=== PATIENT | male | born 1970 | race Caucasian/White ===

== ENCOUNTER 2016-08-18 13:15 | Emergency (ER) | payer BC ==
[~2016-08-18] VITALS: Ht 182.9 cm; Wt 113.4 kg
[~2016-08-18 13:15] MED LIST: ASPI-428 PO; ATOR-26 PO; CHOL100010 PO; CLOP1TAB15 PO; CLR10 PO; COEN1CAP40 PO; FLAX100019 PO; GLC500 PO; LISI-461 PO; METO50TA16 PO; MULTTAB58 PO; NTRGSL/4 UT; OMEG10007 PO; RANITAB33 PO
[2016-08-18 13:18] VITALS: TEMP 36.4; Ht 182.9 cm; Wt 113.4 kg
[2016-08-18] MEDS ORDERED: SODIUM CHLORIDE 0.9% 1000ML 1,000 ML IV STA (13:25)
[2016-08-18 13:30] VITALS: O2SAT 95
--- NOTE | 2016-08-18 13:38 | EMERGENCY ROOM VISIT NOTE ---
History Report prepared by Melissa: Letha Jaramillo Under the Supervision of: Dr. Fidencio Young D.O. First contact with patient: 13:22 Chief Complaint: IRREGULAR HEARTBEAT Stated Complaint: A-FIB Nursing Triage Summary: triage note : pt reports "i have noticed an irregular heart beat since before i went to bed last night and again this morning." pt report hx of heart attack aprox 1.5 years ago with two stent placed. pt denies any chest pain at this time. History of Present Illness The patient is a 46 year old male who presents to the Emergency Room with complaints of constant palpitations beginning last night. The patient states that he was going to bed last night when he began noticing his alcaraz beating irregularly. He reports that he has had this feeling before 5 years ago but he was not overly concerned at the time. He notes that he had a heart attack a year and a half ago. The patient states that his palpitations are worse with exertion and movement. He denies any shortness of breath, nausea, vomiting, and pain. He notes that he is on Plavix, lisinopril, metoprolol, and metformin. The patient reports that he is not taking his cholesterol pill because it causes him joint pain. Source of History: patient Onset: last night Position: other (heart) Quality: other (irregular beat) Timing: constant Modifying Factors (Worsening): exertion Associated Symptoms: No SOB, No nausea, No vomiting Review of Systems See HPI for pertinent positives & negatives. A total of 10 systems reviewed and were otherwise negative. Past Medical & Surgical Medical Problems: (1) Chest pain (2) Hyperglycemia (3) Hypertension (4) STEMI (ST elevation myocardial infarction) Family History FHx: myocardial infarction Social History Smoking Status: Never Smoker Marital Status: Housing Status: lives with family Occupation Status: employed Current/Historical Medications Scheduled Apixaban (Eliquis), 5 MG PO BID Aspirin (Ecotrin Low Strength), 81 MG PO DAILY Atorvastatin (Lipitor), 80 MG PO QPM Cholecalciferol (Vitamin D), 1,000 INTER.UNIT PO DAILY Clopidogrel (Plavix), 75 MG PO DAILY Coenzyme Q10 (Ubidecarenone) (Co Q-10), 400 MG PO DAILY Fish Oil (S[place]ro [place]-3), 1,000 MG PO DAILY Flaxseed (Linseed) (Flaxseed Oil 1000 mg), 1,000 MG PO DAILY Lisinopril (Lisinopril), 5 MG PO DAILY Metformin HCl (Metformin HCl), 500 MG PO QAM Metoprolol Tartrate (Lopressor), 12.5 MG PO BID Metoprolol Tartrate (Lopressor) (Lopressor), 1 TAB PO BID Multiple Vitamin (Multivitamin), 1 TAB PO DAILY Scheduled PRN Loratadine (Claritin), 10 MG PO DAILY PRN for Allergy Symptoms Nitroglycerin (Nitrostat), 0.4 MG UT UD PRN for Chest Pain Ranitidine Hcl (Zantac), 75 MG PO DAILY PRN for Indigestion Allergies Coded Allergies: Sulfa Antibiotics (Verified Allergy, Intermediate, rash, 08/18/16) Sertraline (Verified Allergy, Unknown, UNKNOWN, 08/18/16) Physical Exam Vital Signs Date Time Temp Pulse Resp B/P (MAP) Pulse Ox O2 Delivery O2 Flow Rate FiO2 08/18/16 15:22 86 18 133/92 96 Room Air 08/18/16 14:20 82 20 120/86 96 Room Air 08/18/16 14:19 78 18 125/88 95 Room Air 08/18/16 14:16 94 128/85 08/18/16 14:04 82 20 136/79 96 Room Air 08/18/16 13:47 138 08/18/16 13:30 95 Room Air 08/18/16 13:30 95 Room Air 08/18/16 13:18 36.4 93 18 126/83 96 Room Air Physical Exam GENERAL: Patient is awake, alert, mildly anxious appearing but comfortable EYES: The conjunctivae are clear. The pupils are round and reactive. EARS, NOSE, MOUTH AND THROAT: The nose is without any evidence of any deformity. Mucous membranes are moist tongue is midline NECK: The neck is nontender and supple. RESPIRATORY: Normal respiratory effort is noted there is no evidence of wheezing rhonchi or rales CARDIOVASCULAR: Regular rate and Irregular rhythm noted there no murmurs rubs or gallops normal S1 normal S2 GASTROINTESTINAL: The abdomen is soft. Bowel sounds are present in all quadrants. Abdomen is nontender MUSCULOSKELETAL/EXTREMITIES: There is no evidence of gross deformity full range of motion is noted in the hips and shoulders SKIN: There is no obvious evidence of any rash. There are no petechiae, pallor or cyanosis noted. Trace pedal edema bilaterally NEUROLOGIC: Patient is awake alert and oriented x3 Medical Decision & Procedures ER Provider Diagnostic Interpretation: X-ray results as stated below per interpretation by me and the radiologist. CHEST ONE VIEW PORTABLE FINDINGS: The cardiac and mediastinal contours are normal. There is no evidence of focal pulmonary consolidation. There is no evidence of failure. No pleural effusions are visualized. There is stable left upper lobe lucency, possibly representing focal emphysema.. IMPRESSION: No active disease in the chest. Electronically signed by: Roderick Laar M.D. 08/18/2016 1:41 PM Dictated Date/Time: 08/18/2016 1:40 PM Laboratory Results 08/18/16 13:43 Red Blood Count 6.15, Mean Corpuscular Volume 82.6, Mean Corpuscular Hemoglobin 28.1, Mean Corpuscular Hemoglobin Concent 34.1, Mean Platelet Volume 10.3, Neutrophils (%) (Auto) 62.9, Lymphocytes (%) (Auto) 25.8, Monocytes (%) (Auto) 7.5, Eosinophils (%) (Auto) 3.4, Basophils (%) (Auto) 0.2, Neutrophils # (Auto) 5.33, Lymphocytes # (Auto) 2.19, Monocytes # (Auto) 0.64, Eosinophils # (Auto) 0.29, Basophils # (Auto) 0.02 08/18/16 13:43 Test 08/18/16 13:43 White Blood Count 8.49 K/uL (4.8-10.8) Red Blood Count 6.15 M/uL (4.7-6.1) Hemoglobin 17.3 g/dL (14.0-18.0) Hematocrit 50.8 % (42-52) Mean Corpuscular Volume 82.6 fL (80-100) Mean Corpuscular Hemoglobin 28.1 pg (25-34) Mean Corpuscular Hemoglobin Concent 34.1 g/dl (32-36) Platelet Count 240 K/uL (130-400) Mean Platelet Volume 10.3 fL (7.4-10.4) Neutrophils (%) (Auto) 62.9 % Lymphocytes (%) (Auto) 25.8 % Monocytes (%) (Auto) 7.5 % Eosinophils (%) (Auto) 3.4 % Basophils (%) (Auto) 0.2 % Neutrophils # (Auto) 5.33 K/uL (1.4-6.5) Lymphocytes # (Auto) 2.19 K/uL (1.2-3.4) Monocytes # (Auto) 0.64 K/uL (0.11-0.59) Eosinophils # (Auto) 0.29 K/uL (0-0.5) Basophils # (Auto) 0.02 K/uL (0-0.2) RDW Standard Deviation 39.0 fL (36.4-46.3) RDW Coefficient of Variation 13.0 % (11.5-14.5) Immature Granulocyte % (Auto) 0.2 % Immature Granulocyte # (Auto) 0.02 K/uL (0.00-0.02) Prothrombin Time 10.3 SECONDS (9.0-12.0) Prothromb Time International Ratio 1.0 (0.9-1.1) Activated Partial Thromboplast Time 30.1 SECONDS (21.0-31.0) Partial Thromboplastin Ratio 1.2 Anion Gap 10.0 mmol/L (3-11) Est Creatinine Clear Calc Drug Dose 122.5 ml/min Estimated GFR () 106.7 Estimated GFR (Non- 92.1 BUN/Creatinine Ratio 14.4 (10-20) Calcium Level 8.7 mg/dl (8.5-10.1) Magnesium Level 2.0 mg/dl (1.8-2.4) Total Bilirubin 0.4 mg/dl (0.2-1) Direct Bilirubin 0.1 mg/dl (0-0.2) Aspartate Amino Transf (AST/SGOT) 25 U/L (15-37) Alanine Aminotransferase (ALT/SGPT) 51 U/L (12-78) Alkaline Phosphatase 110 U/L (45-117) Troponin I < 0.015 ng/ml (0-0.045) Total Protein 7.5 gm/dl (6.4-8.2) Albumin 3.6 gm/dl (3.4-5.0) Lipase 144 U/L (73-393) Thyroid Stimulating Hormone (TSH) 1.000 uIu/ml (0.300-4.500) Free Thyroxine 1.04 ng/dl (0.80-1.60) Laboratory results per my review. Medications Administered Medications (Trade) Dose Ordered Sig/Rufina Route Start Time Stop Time Status Last Admin Dose Admin Sodium Chloride 1,000 ml @ 250 mls/hr Q4H STAT IV 08/18/16 13:25 08/18/16 17:24 08/18/16 13:25 250 MLS/HR Metoprolol Tartrate (Lopressor Iv) 15 mg NOW STAT IV 08/18/16 13:59 08/18/16 14:00 DC 08/18/16 14:16 5 MG Sodium Chloride 500 ml @ 999 mls/hr Q31M STAT IV 08/18/16 14:10 08/18/16 14:40 DC 08/18/16 14:17 999 MLS/HR ECG Indication: palpitations Rate (beats per minute): 99 Rhythm: atrial fibrillation Findings: other (no PVC, no ST segment abnormalities) Comparison ECG Date: 10/20/15 Change: A-fib is new compared to old. ED Course 1322: The patient was evaluated in room B11. A complete history and physical examination were performed. 1325: NSS 1,000 ml @ 250 mls/hr IV. 1359: Lopressor IV 15mg IV. 1410: NSS 500 ml @ 999 mls/hr IV. 1511: I spoke to Dr. Newman of Cardiology about the patient's case. He recommends increasing his beta tay and starting him on anticoagulation. 1523: Upon reevaluation, the patient is doing well. I discussed the results and treatment plan with the patient. He verbalized agreement of the treatment plan. The patient was discharged home. Medical Decision Differential diagnosis: Etiologies such as premature contractions, electrolyte abnormality, cardiac dysrhythmia, thyroid dysfunction, pulmonary embolism, infection, gastrointestinal, as well as others were entertained. Medication Reconciliation: I attest that I have personally reviewed the patient' s current medications list. Blood pressure screening: Patient was found to have normal blood pressure on screening and does not require follow-up. The patient is a 46-year-old male who presented to the emergency department for an evaluation of palpitations. The patient was found have rate controlled new- onset atrial fibrillation. He was treated with IV fluids and IV Lopressor in the emergency department. I discussed the patient's laboratory and radiographic studies with him. I also discussed his case with the on-call [facility] certified medical records coder. At this time they've recommended increasing the patient's beta tay. We have also decided to start the patient on an oral anticoagulant and recommended follow-up with cardiology this week for possible further treatment options. I discussed the patient's condition with him. I discussed that I would recommend that he return to the emergency department immediately for any worrisome symptoms. Rest and avoid any strenuous activity until he can be seen by certified medical records coder. I did review the patient's most recent echocardiogram. Consults Time Called: [phone] Consulting Physician: Dr. Newman - Cardiology Returned Call: [phone] Newman of Cardiology about the patient's case. He recommends increasing his beta tay and starting him on anticoagulation. Impression Primary Impression: New onset a-fib Additional Impression: Palpitations Scribe Attestation The scribe's documentation has been prepared under my direction and personally reviewed by me in its entirety. I confirm that the note above accurately reflects all work, treatment, procedures, and medical decision making performed by me. Departure Information Dispostion Home / Self-Care Prescriptions Apixaban (ELIQUIS) 5 Mg Tab 5 MG PO BID, #60 TAB Prov: Fidencio Young, DO 08/18/16 Metoprolol Tartrate (Lopressor) (Lopressor) 25 Mg Tab 1 TAB PO BID for 30 Days, #60 TAB Prov: Fidencio Young, DO 08/18/16 Referrals Sharon Ruiz M.D. (MEDICAL) (PCP) Forms HOME CARE DOCUMENTATION FORM, IMPORTANT VISIT INFORMATION Patient Instructions Atrial Fibrillation Id, My [facility] Additional Instructions Call the certified medical records coder on Saturday morning to schedule a follow-up appointment. Continue the medications as prescribed. We are going to change her metoprolol dose to 25 milligrams twice a day and start you on a blood thinner. Otherwise follow-up with your family doctor for reevaluation as well. Problem Qualifiers
--- NOTE | 2016-08-18 13:42 | DIAGNOSTIC IMAGING REPORT ---
CHEST ONE VIEW PORTABLE CLINICAL HISTORY: Atypical chest pain. Atrial fibrillation. COMPARISON STUDY: No previous studies for comparison. FINDINGS: The cardiac and mediastinal contours are normal. There is no evidence of focal pulmonary consolidation. There is no evidence of failure. No pleural effusions are visualized.[ There is stable left upper lobe lucency, possibly representing focal emphysema.. IMPRESSION: No active disease in the chest. Electronically signed by: Roderick Lara M.D. 08/18/2016 1:41 PM Dictated Date/Time: 08/18/2016 1:40 PM
[2016-08-18] MEDS ORDERED: LPR25 PO (13:53)
[2016-08-18] MEDS ORDERED: LSN5 PO (13:53)
[2016-08-18 13:54] LABS: BASO % 0.2 %; BASO ABS # 0.02 K/uL (0-0.2); COMPLETE YES; EOS % 3.4 %; HEMATOCRIT 50.8 % (42-52); IG% 0.2 %; LYMPH % 25.8 %; LYMPH ABS # 2.19 K/uL (1.2-3.4); MEAN CELL VOLUME 82.6 fL (80-100); MEAN CORPUSCULAR HEMOGLOBIN 28.1 pg (25-34); MEAN CORPUSCULAR HGB CONC 34.1 g/dl (32-36); MEAN PLATELET VOLUME 10.3 fL (7.4-10.4); MONO % 7.5 %; NEUT % 62.9 %; PLATELET COUNT 240 K/uL (130-400); RED BLOOD COUNT 6.15 M/uL (4.7-6.1); WHITE BLOOD COUNT 8.49 K/uL (4.8-10.8)
[2016-08-18] MEDS ORDERED: METOPROLOL TARTRATE 1 MG/ML VIAL IV STA (13:59)
[2016-08-18 14:02] LABS: PARTIAL THROMBOPLASTIN RATIO 1.2; PROTHROMBIN TIME (PATIENT) 10.3 SECONDS (9.0-12.0)
[2016-08-18 14:09] LABS: ALT/SGPT 51 U/L (12-78); BLOOD UREA NITROGEN 14 mg/dl (7-18); BUN/CREATININE RATIO 14.4 (10-20); CALCIUM 8.7 mg/dl (8.5-10.1); CARBON DIOXIDE 20 mmol/L (21-32); CHLORIDE 108 mmol/L (98-107); CREATININE 0.98 mg/dl (0.60-1.40); GLUCOSE 186 mg/dl (70-99); POTASSIUM 4.2 mmol/L (3.5-5.1); SODIUM 138 mmol/L (136-145)
[2016-08-18] MEDS ORDERED: SODIUM CHLORIDE 0.9% 500ML 500 ML IV STA (14:10)
[2016-08-18 14:17] LABS: ALKALINE PHOSPHATASE 110 U/L (45-117); AST/SGOT 25 U/L (15-37)
[2016-08-18] MEDS ORDERED: METO25TA56 PO (15:16)
[2016-08-18] MEDS ORDERED: APIX1TAB3 PO (15:16)
[2016-08-18 15:22] VITALS: BP 133/92; PULSE 86; O2SAT 96
== END 2016-08-18 15:31 | disposition home or self-care (01) ==
LOC: C.EDB 13:16
DX: I48.91 Unspecified atrial fibrillation (principal); R00.2 Palpitations; E78.5 Hyperlipidemia, unspecified; I10 Essential (primary) hypertension; Z79.01 Long term (current) use of anticoagulants; Z79.02 Long term (current) use of antithrombotics/antiplatelets; Z79.82 Long term (current) use of aspirin; Z79.84 Long term (current) use of oral hypoglycemic drugs; Z79.899 Other long term (current) drug therapy; I25.2 Old myocardial infarction; Z82.49 Family history of ischemic heart disease and other diseases of the circulatory system

== ENCOUNTER → 2016-09-04 | Outpatient (CLI) | payer BC ==
[~2016-09-04] MED LIST changes: +APIX1TAB3 PO; -LISI-461 PO; +LPR25 PO; +LSN5 PO; +METO25TA56 PO; -METO50TA16 PO
[2016-09-04 17:37] LABS: INR 1.6 (0.9-1.1); PROTHROMBIN TIME (PATIENT) 17.4 SECONDS (9.0-12.0)
== END | disposition home or self-care (01) ==
LOC: C.LAB1850 16:28
PROVIDERS: ATTEND Internal Medicine Cardiovascular Disease
DX: I48.91 Unspecified atrial fibrillation (principal)

== ENCOUNTER 2019-03-27 04:57 | Inpatient (IN) ==
[2019-03-27] MEDS ORDERED: LORazepam 1 MG/2 ML VIAL IV STA (05:10)
--- NOTE | 2019-03-27 05:16 | Emergency Department Note ---
History of Present Illness General Chief complaint: Cardiac Assessment Stated complaint: HEART BEATING FUNNY/FLUTTER, BURNING History of Present Illness Maximum Pain Intensity: 5 This 48-year-old presents to the ER complaining of chest pain, heart fluttering tonight Location: Chest Quality: Uncomfortable Severity: Moderate Duration: Tonight Timing: Tonight Context: Patient was concerned given Modifying factors: better with nothing; worse with nothing patient was admitted last week for chest pain with no acute findings noted. He has had stents placed in the past. He follows with Dr. Maier. He does not smoke. Patient denies exertional chest pain, dyspnea, abdominal pain, flulike illness. He has a history of A. fib and is on Eliquis. He has not missed any doses. He is tried some Tums for his symptoms with no improvement of symptoms. Home Medications Home Medications Medication Instructions Recorded Confirmed Type apixaban 5 mg tablet 5 mg PO BID #60 tab 10/14/18 03/27/19 Rx acetaminophen [Tylenol Extra 1,000 mg PO Q6H PRN 03/19/19 03/27/19 History Strength] atorvastatin 80 mg PO QPM 03/19/19 03/27/19 History clopidogrel 75 mg PO QAM 03/19/19 03/27/19 History famotidine 20 mg PO DAILY PRN 03/19/19 03/27/19 History lisinopril 5 mg PO QAM 03/19/19 03/27/19 History loratadine 10 mg PO QPM PRN 03/19/19 03/27/19 History metformin 500 mg PO BIDM 03/19/19 03/27/19 History metoprolol tartrate 25 mg PO BID 03/19/19 03/27/19 History nitroglycerin 0.4 mg SL DIRECTED PRN 03/19/19 03/27/19 History cyclobenzaprine 10 mg PO TID PRN #90 tab 03/20/19 03/27/19 Rx omeprazole 20 mg PO DAILY 03/27/19 03/27/19 History Allergies Allergy/AdvReac Type Severity Reaction Status Date / Time Sulfa (Sulfonamide Allergy Intermediate Rash Verified 03/27/19 05:22 Antibiotics) sertraline Allergy Unknown Confusion Verified 03/27/19 05:22 Past Med/Surg History Medical History (Updated 03/27/19 @ 09:38 by Geeta Ellis PA-C) CAD (coronary artery disease) GERD (gastroesophageal reflux disease) Hypertension PAF (paroxysmal atrial fibrillation) Pre-diabetes STEMI (ST elevation myocardial infarction) Surgical History History of cardiac catheterization Family History Other Hypertension Stroke Social History Preferred Language: Gambian Communication Ability: Effective Plasterer Tender Required: No Beliefs That Will Affect Care: None Current Living Situation: Spouse Other Information That Helps Us Care for You: No Feels Safe at Home: Yes Safety Concerns: Feels Safe At This Time Smoking Status: Never smoker Hx Alcohol Use: No Hx Substance Use: No Review of Systems A total of 10 systems reviewed and were otherwise negative Physical Exam Vital Signs Vital Signs - 24 hr 03/27/19 04:57 03/27/19 05:04 03/27/19 05:13 Temperature 36.8 C Temperature Source Oral Pulse Rate 93 H 106 H Pulse Rate [Apical] 117 H Pulse Rate from SpO2 Sensor 99 H Pulse Rhythm [Apical] Regular Pulse Strength [Apical] Normal Respiratory Rate 20 18 26 H Respiratory Effort / Characteristics Non-Labored Respiratory Depth Normal Blood Pressure 158/91 H Blood Pressure [Left Arm] 147/88 H Blood Pressure Mean 113 Blood Pressure Mean [Left Arm] 107 Blood Pressure Position Sitting Blood Pressure Position [Left Arm] Pulse Oximetry 97 97 97 Oxygen Delivery Method Room Air Room Air Sepsis Recent Fever Within 48 Hours No Sepsis New/Unexplained Change in Mental Status No Sepsis Action Taken by Nursing No Action Required 03/27/19 05:18 03/27/19 05:20 03/27/19 05:30 Temperature Temperature Source Pulse Rate 96 H Pulse Rate [Apical] Pulse Rate from SpO2 Sensor 89 Pulse Rhythm [Apical] Pulse Strength [Apical] Respiratory Rate 36 H Respiratory Effort / Characteristics Respiratory Depth Blood Pressure Blood Pressure [Left Arm] Blood Pressure Mean Blood Pressure Mean [Left Arm] Blood Pressure Position Blood Pressure Position [Left Arm] Pulse Oximetry 97 97 Oxygen Delivery Method Room Air Room Air Sepsis Recent Fever Within 48 Hours Sepsis New/Unexplained Change in Mental Status Sepsis Action Taken by Nursing 03/27/19 05:40 03/27/19 06:00 03/27/19 06:19 Temperature Temperature Source Pulse Rate 109 H 106 H 101 H Pulse Rate [Apical] 103 H Pulse Rate from SpO2 Sensor 91 H 96 H 104 H Pulse Rhythm [Apical] Irregular Pulse Strength [Apical] Normal Respiratory Rate 22 23 24 Respiratory Effort / Characteristics Non-Labored Spontaneous Respiratory Depth Normal Blood Pressure 147/88 H 112/74 Blood Pressure [Left Arm] 112/74 Blood Pressure Mean 115 83 Blood Pressure Mean [Left Arm] 86 Blood Pressure Position Blood Pressure Position [Left Arm] Sitting Pulse Oximetry 96 95 96 Oxygen Delivery Method Room Air Sepsis Recent Fever Within 48 Hours Sepsis New/Unexplained Change in Mental Status Sepsis Action Taken by Nursing 03/27/19 06:30 03/27/19 06:59 03/27/19 07:00 Temperature Temperature Source Pulse Rate 83 103 H 96 H Pulse Rate [Apical] 108 H Pulse Rate from SpO2 Sensor 85 84 90 Pulse Rhythm [Apical] Irregular Pulse Strength [Apical] Normal Respiratory Rate 28 H 34 H 28 H Respiratory Effort / Characteristics Non-Labored Spontaneous Respiratory Depth Normal Blood Pressure 123/89 124/83 Blood Pressure [Left Arm] 124/83 Blood Pressure Mean 93 111 Blood Pressure Mean [Left Arm] 96 Blood Pressure Position Blood Pressure Position [Left Arm] Sitting Pulse Oximetry 96 97 97 Oxygen Delivery Method Room Air Sepsis Recent Fever Within 48 Hours Sepsis New/Unexplained Change in Mental Status Sepsis Action Taken by Nursing 03/27/19 07:02 03/27/19 07:30 03/27/19 07:31 Temperature Temperature Source Pulse Rate 109 H 106 H 102 H Pulse Rate [Apical] Pulse Rate from SpO2 Sensor 120 H 82 84 Pulse Rhythm [Apical] Pulse Strength [Apical] Respiratory Rate 22 23 19 Respiratory Effort / Characteristics Respiratory Depth Blood Pressure 152/111 H Blood Pressure [Left Arm] Blood Pressure Mean 116 Blood Pressure Mean [Left Arm] Blood Pressure Position Blood Pressure Position [Left Arm] Pulse Oximetry 97 95 96 Oxygen Delivery Method Sepsis Recent Fever Within 48 Hours Sepsis New/Unexplained Change in Mental Status Sepsis Action Taken by Nursing 03/27/19 07:43 03/27/19 08:00 03/27/19 08:30 Temperature Temperature Source Pulse Rate 93 H 112 H 92 H Pulse Rate [Apical] Pulse Rate from SpO2 Sensor 83 86 92 H Pulse Rhythm [Apical] Pulse Strength [Apical] Respiratory Rate 26 H 29 H 26 H Respiratory Effort / Characteristics Respiratory Depth Blood Pressure 130/88 136/80 Blood Pressure [Left Arm] Blood Pressure Mean 114 88 Blood Pressure Mean [Left Arm] Blood Pressure Position Blood Pressure Position [Left Arm] Pulse Oximetry 97 98 97 Oxygen Delivery Method Sepsis Recent Fever Within 48 Hours Sepsis New/Unexplained Change in Mental Status Sepsis Action Taken by Nursing 03/27/19 09:00 Temperature Temperature Source Pulse Rate 101 H Pulse Rate [Apical] Pulse Rate from SpO2 Sensor 92 H Pulse Rhythm [Apical] Pulse Strength [Apical] Respiratory Rate 25 H Respiratory Effort / Characteristics Respiratory Depth Blood Pressure 147/84 H Blood Pressure [Left Arm] Blood Pressure Mean 89 Blood Pressure Mean [Left Arm] Blood Pressure Position Blood Pressure Position [Left Arm] Pulse Oximetry 97 Oxygen Delivery Method Sepsis Recent Fever Within 48 Hours Sepsis New/Unexplained Change in Mental Status Sepsis Action Taken by Nursing VITALS: Vitals are noted on the nurse's note and reviewed by myself. Vital signs stable. GENERAL: Anxious appearing male, in no acute distress, nondiaphoretic, well- developed well-nourished. SKIN: Capillary reflex less than 2 seconds. HEENT: Normocephalic. PERRLA. EOMI. Nares patent. Mucous membranes moist. Neck is supple without nuchal rigidity. HEART: Irregularly irregular tachycardic, chest nontender to palpation LUNGS: Clear to auscultation bilaterally without wheezes, rales or rhonchi. No retractions or accessory muscle use. ABDOMEN: Positive bowel sounds x 4. Normal tympanic percussion. Soft, nontender, without masses or organomegaly. Riggins sign negative. No guarding or rebound tenderness. MUSCULOSKELETAL: No gross musculoskeletal defects. NEURO: Patient was alert and oriented to person place and time. No focal neurological deficits. Course Administered Medications Apixaban (Eliquis) 5 mg PO BID [facility] Stop: 04/26/19 10:01 Last Admin: 03/27/19 20:32 Dose: 5 mg Documented by: [id number] Admin: 03/27/19 11:15 Dose: 5 mg Documented by: [id number] Atorvastatin Calcium (Lipitor) 80 mg PO QPM [facility] Stop: 04/26/19 20:59 Last Admin: 03/27/19 20:33 Dose: 80 mg Documented by: [id number] Clopidogrel Bisulfate (Plavix) 75 mg PO QAM [facility] Stop: 04/26/19 10:01 Last Admin: 03/27/19 11:16 Dose: 75 mg Documented by: [id number] Insulin Aspart (Novolog Flexpen) 0 units SC ACHS [facility] Stop: 04/26/19 11:29 Last Admin: 03/27/19 20:31 Dose: 2 units Documented by: [id number] Cosigned by: [id number] Admin: 03/27/19 17:16 Dose: 7 units Documented by: [id number] Cosigned by: [id number] Admin: 03/27/19 12:33 Dose: 2 units Documented by: [id number] Cosigned by: [id number] Lisinopril (Zestril) 5 mg PO QAM [facility] Stop: 04/26/19 10:01 Last Admin: 03/27/19 11:16 Dose: 5 mg Documented by: [id number] Metoprolol Tartrate (Lopressor) 100 mg PO BID [facility] Stop: 04/26/19 20:59 Last Admin: 03/27/19 20:34 Dose: 100 mg Documented by: [id number] Discontinued Medications Diltiazem HCl (Cardizem) 10 mg IV NOW STA Stop: 03/27/19 05:47 Last Admin: 03/27/19 06:12 Dose: 10 mg Documented by: [id number] Cosigned by: [id number] Lorazepam (Ativan) 1 mg in 2 mls @ 2 mls/min IV NOW STA Stop: 03/27/19 05:11 Last Admin: 03/27/19 05:31 Dose: 1 mls/min Documented by: [id number] Metoprolol Tartrate (Lopressor) 25 mg PO NOW STA Stop: 03/27/19 08:45 Last Admin: 03/27/19 09:12 Dose: 25 mg Documented by: [id number] Metoprolol Tartrate (Lopressor) 25 mg PO ONCE ONE Stop: 03/27/19 11:16 Last Admin: 03/27/19 11:16 Dose: 25 mg Documented by: [id number] Metoprolol Tartrate (Lopressor) 25 mg PO ONE ONE Stop: 03/27/19 14:46 Last Admin: 03/27/19 14:34 Dose: 25 mg Documented by: [id number] Medical Decision Making Medical Records Attestation: I reviewed the patient's medical records. Home Medications Current Medication List: was personally reviewed by me Laboratory Data Attestation: I reviewed the patient's lab results. Result diagrams: 03/27/19 05:26 03/27/19 05:26 Lab Results 03/27/19 03/27/19 03/27/19 Range/Units 05:26 05:26 05:26 WBC 9.19 (4.8-10.8) K/uL RBC 5.65 (4.7-6.1) M/uL Hgb 16.3 (14.0-18.0) g/dL Hct 45.8 (42-52) % MCV 81.1 (80-100) fL MCH 28.8 (25-34) pg MCHC 35.6 (32-36) g/dL RDW Std Deviation 36.5 (36.4-46.3) fL RDW Coeff of Bernice 12.4 (11.5-14.5) % Plt Count 246 (130-400) K/uL MPV 10.2 (7.4-10.4) fL Immature Gran % (Auto) 0.2 % Neut % (Auto) 54.3 % Lymph % (Auto) 30.5 % Dyer % (Auto) 9.8 % Eos % (Auto) 5.0 % Baso % (Auto) 0.2 % Immature Gran # (Auto) 0.02 (0.00-0.02) K/uL Neut # (Auto) 4.99 (1.4-6.5) K/uL Lymph # (Auto) 2.80 (1.2-3.4) K/uL Dyer # (Auto) 0.90 H (0.11-0.59) K/uL Eos # (Auto) 0.46 (0-0.5) K/uL Baso # (Auto) 0.02 (0-0.2) K/uL PT 9.8 (9.0-12.0) Seconds INR 1.0 (0.9-1.1) APTT 28.5 (21.0-31.0) Seconds PTT Ratio 1.1 Sodium 136 (136-145) mmol/L Potassium 4.1 (3.5-5.1) mmol/L Chloride 105 (98-107) mmol/L Carbon Dioxide 25 (21-32) mmol/L Anion Gap 6.0 (3-11) BUN 13 (7-18) mg/dl Creatinine 0.81 (0.6-1.4) mg/dl Est Cr Clr Drug Dosing 140.0 ml/min Est GFR ( Amer) 121.8 Est GFR (Non-Af Amer) 105.1 BUN/Creatinine Ratio 16.1 (10-20) Glucose 201 H (70-99) mg/dl Calcium 8.8 (8.5-10.1) mg/dl Magnesium (1.8-2.4) mg/dl Total Bilirubin 0.3 (0.2-1) mg/dl AST 27 (15-37) U/L ALT 63 (12-78) U/L Alkaline Phosphatase 127 H (45-117) U/L Troponin I < 0.015 (0-0.045) ng/ml Total Protein 7.5 (6.4-8.2) gm/dl Albumin 3.5 (3.4-5.0) gm/dl Globulin 4.0 (2.5-4.0) gm/dl Albumin/Globulin Ratio 0.9 (0.9-2) Lipase 161 (73-393) U/L TSH (0.300-4.500) uIu/ml Free T4 (0.8-1.6) ng/dl Specimen Hemolysis 03/27/19 03/27/19 Range/Units 06:56 06:56 WBC (4.8-10.8) K/uL RBC (4.7-6.1) M/uL Hgb (14.0-18.0) g/dL Hct (42-52) % MCV (80-100) fL MCH (25-34) pg MCHC (32-36) g/dL RDW Std Deviation (36.4-46.3) fL RDW Coeff of Bernice (11.5-14.5) % Plt Count (130-400) K/uL MPV (7.4-10.4) fL Immature Gran % (Auto) % Neut % (Auto) % Lymph % (Auto) % Dyer % (Auto) % Eos % (Auto) % Baso % (Auto) % Immature Gran # (Auto) (0.00-0.02) K/uL Neut # (Auto) (1.4-6.5) K/uL Lymph # (Auto) (1.2-3.4) K/uL Dyer # (Auto) (0.11-0.59) K/uL Eos # (Auto) (0-0.5) K/uL Baso # (Auto) (0-0.2) K/uL PT (9.0-12.0) Seconds INR (0.9-1.1) APTT (21.0-31.0) Seconds PTT Ratio Sodium (136-145) mmol/L Potassium (3.5-5.1) mmol/L Chloride (98-107) mmol/L Carbon Dioxide (21-32) mmol/L Anion Gap (3-11) BUN (7-18) mg/dl Creatinine (0.6-1.4) mg/dl Est Cr Clr Drug Dosing ml/min Est GFR ( Amer) Est GFR (Non-Af Amer) BUN/Creatinine Ratio (10-20) Glucose (70-99) mg/dl Calcium (8.5-10.1) mg/dl Magnesium 2.0 (1.8-2.4) mg/dl Total Bilirubin (0.2-1) mg/dl AST (15-37) U/L ALT (12-78) U/L Alkaline Phosphatase (45-117) U/L Troponin I < 0.015 (0-0.045) ng/ml Total Protein (6.4-8.2) gm/dl Albumin (3.4-5.0) gm/dl Globulin (2.5-4.0) gm/dl Albumin/Globulin Ratio (0.9-2) Lipase (73-393) U/L TSH < 0.005 L (0.300-4.500) uIu/ml Free T4 1.63 H (0.8-1.6) ng/dl Specimen Hemolysis Imaging Data Attestation: I personally reviewed and interpreted this imaging study as follows: MDM Narrative Prior records/ancillary studies reviewed. Triage Nursing notes reviewed. Additional history obtained from family. The patient's history was concerning for chest pain. Differential diagnosis: Etiologies such as cardiac ischemia, aortic dissection, pulmonary embolism, pneumonia, pneumothorax, musculoskeletal, infections, pericarditis, myocarditis, esophageal rupture, gastrointestinal, as well as others were entertained. Physical examination: As above. ER treatment provided: An order was placed for continuous cardiac monitoring. The monitor shows a rate of 80-130with a a fib w/ RVR Ativan On reassessment the patient felt better. Diagnostic interpretation by me: The electrocardiogram was for baseline, irregularly irregular, rate of 107. Chronic T wave inversions in the inferior leads unchanged. Impression atrial fibrillation rate of 107 interpreted by myself EKG ordered for chest pain EKG shows normal sinus rhythm with no interval abnormalities such as QT prolongation or WPW. There are no findings to suggest Brugada syndrome. Cardiac monitoring in the emergency department reveals no bradycardic dysrhythmia. Hypertrophic cardiomyopathy was considered but there are no clear historical elements pointing toward this. EKG is not suggestive. The QRS voltage is not extremely large The labs revealed first troponin is negative. Second 1 is pending at time of signout. Euthyroid Imaging studies: Chest x-ray with no acute consolidation, pneumothorax or free air per my interpretation HEART SCORE: Hx: high/mod/low suspicion: 0 ECG: ST depression/nonspecific changes/normal: 0 Age: Greater than 65/45-64/less than 45: 1 Risk factors: (Hypertension, hyperlipidemia, diabetes, coronary disease, tobacco use, cocaine use): 2 Troponin: Greater than 2 times normal limits/1-2 times normal limits/normal: 0 Total: 3 Exam and history seem consistent with A. fib with RVR and anxiety. Repeat tro ponin was pending at time of signout. At time of signout patient's heart rate was in the 80s. By the evaluation outlined above emergent etiologies such as aortic dissection, pulmonary embolism, pneumonia, pneumothorax, infections, pericarditis, myocarditis, gastrointestinal, as well as others were deemed relatively unlikely. Case signed out to REJI Burgos, pending repeat troponin and evaluation of Cardizem effectiveness with a patient with chronic A. fib his heart rate is in the 80s currently after 1 dose of Cardizem in stable condition. The chart was completed utilizing [employer] Speech voice recognition software. Grammatical errors, random word insertions, pronoun errors, and incomplete sentences are an occassional consequence of this system due to software limitations, ambient noise, and hardware issues. Any formal questions or concerns about the content, text, or information contained within the body of this dictation should be directly addressed to the physician catering administrative assistant for clarification. Impression & Plan Atrial fibrillation with rapid ventricular response Discharge Plan Visit Data *Final* Discharge Date/Time: 03/27/19 09:51 Chief Complaint: Cardiac Assessment Stated Complaint: HEART BEATING FUNNY/FLUTTER, BURNING ED Provider: Kathy Waddell ED Midlevel Provider: Mary Madrigal Discharge Problem: Atrial fibrillation with rapid ventricular response Patient Disposition: Admitted As Inpatient Condition: Good Discharge Instructions Interventions: ED Discharge Assessment Last Done: 03/27/19 09:51
[2019-03-27 05:38] LABS: Basophils # (auto) 0.02 K/uL (0-0.2); Basophils % (auto) 0.2 %; Eosinophils # (auto) 0.46 K/uL (0-0.5); Hematocrit (blood only) 45.8 % (42-52); Hemoglobin 16.3 g/dL (14.0-18.0); Immature Granulocytes # (auto) 0.02 K/uL (0.00-0.02); Immature Granulocytes % (auto) 0.2 %; Lymphocytes % (auto) 30.5 %; Mean Corpuscular Hemoglobin 28.8 pg (25-34); Mean Corpuscular Hgb Conc 35.6 g/dL (32-36); Mean Corpuscular Volume 81.1 fL (80-100); Mean Platelet Volume 10.2 fL (7.4-10.4); Monocytes % (auto) 9.8 %; Neutrophils # (auto) 4.99 K/uL (1.4-6.5); Neutrophils % (auto) 54.3 %; Platelet Count 246 K/uL (130-400); RDW Coefficient of Variation 12.4 % (11.5-14.5); RDW Standard Deviation 36.5 fL (36.4-46.3); Red Blood Count 5.65 M/uL (4.7-6.1); White Blood Count 9.19 K/uL (4.8-10.8)
[2019-03-27] MEDS ORDERED: dilTIAZem HCl 5 MG/ML 5 ML VIAL IV STA (05:46)
[2019-03-27 05:53] LABS: Partial Thromboplastin Ratio 1.1; Partial Thromboplastin Time 28.5 Seconds (21.0-31.0); Prothrombin Time 9.8 Seconds (9.0-12.0)
[2019-03-27 06:02] LABS: Alanine Aminotransferase 63 U/L (12-78); Albumin Globulin Ratio 0.9 (0.9-2); Albumin Level 3.5 gm/dl (3.4-5.0); Alkaline Phosphatase 127 U/L (45-117); Aspartate Aminotransferase 27 U/L (15-37); BUN Creatinine Ratio 16.1 (10-20); Bilirubin,Total 0.3 mg/dl (0.2-1); Blood Urea Nitrogen 13 mg/dl (7-18); Calcium 8.8 mg/dl (8.5-10.1); Carbon Dioxide 25 mmol/L (21-32); Chloride 105 mmol/L (98-107); Est GFR (African American) 121.8; Est GFR (Non-African American) 105.1; Glucose 201 mg/dl (70-99); Lipase 161 U/L (73-393); Potassium 4.1 mmol/L (3.5-5.1); Sodium 136 mmol/L (136-145); Total Protein 7.5 gm/dl (6.4-8.2); Troponin I < 0.015 ng/ml (0-0.045)
--- NOTE | 2019-03-27 06:44 | XRay Report ---
XR chest 1V portable HISTORY: 48 years-old Male Chest Pain acute atypical chest pain COMPARISON: Chest radiograph 03/19/2019 TECHNIQUE: Portable AP view of the chest FINDINGS: Cardiomediastinal and hilar silhouettes are within normal limits. There is no pneumothorax, pleural e ffusion, focal airspace consolidation or overt pulmonary edema. Bones of the chest appear grossly int act. IMPRESSION: No acute process. ACT 112: Negative or not required by law. The above report was generated using voice recognition software. It may contain grammatical, syntax o r spelling errors. Electronically signed by: Epifanio Linn M.D. 03/27/2019 6:42 AM
--- NOTE | 2019-03-27 08:29 | Emergency Department Note ---
ED Visit Note This patient's case was signed out to me by Montse Muro PA-C at the end of her shift. At that time a second troponin was pending. The patient had presented to the ER with chest discomfort and was in A. fib with RVR. The patient was tachycardic as well and therefore was given Cardizem. His rate did not slow down and continues to range from 99-117. The second troponin was less than 0.015. Montse had initially contacted the hospitalist about this patient therefore I consulted the [facility] hospitalist for admission. DIAGNOSIS: A. fib with RVR TREATMENT PLAN: Admission .
[2019-03-27] MEDS ORDERED: METOPROLOL TARTRATE 25 MG TAB PO STA (08:44)
--- NOTE | 2019-03-27 09:10 | History & Physical Report ---
Date of Service March 27, 2019 Assessment & Plan (1) Atrial fibrillation with rapid ventricular response: Pt is 48 y/o M with PMH paroxysmal atrial fibrillation on Eliquis, HTN, HLD, CAD s/p MANUEL to RCA & LAD in 2011, GERD, anxiety, prediabetes presented to ER with c/o palpitations started during the middle of the night. In ER pt found to be in a-fib with rate 117. SBP's in 120's-150's. Pt was given Cardizem 10mg IV. Rate currently 90's-118. Pt reports no further palpitations CXR: no acute process. Initial troponin negative -Dose morning metoprolol tartrate 25mg po -Will adjust metoprolol tartrate to TID -Continue Eliquis -TSH, magnesium pending -Cardiology consult (2) CAD (coronary artery disease): S/P MANUEL RCA and LAD in 201103/20/2019: exercise stress normal. 03/20/2019 echo: EF: 55-60%, no wall motion abnormality -Continue Plavis, metoprolol, atorvastatin (3) Hypertension: -Continue lisinopril (4) Hypercholesterolemia: -Continue atorvastatin (5) Pre-diabetes: A1c: 7.1 on 03/20/2019 -Hold metformin -Novolog sliding scale per protocol (6) GERD (gastroesophageal reflux disease): -Continue PPI, H2 tay DVT Prophylaxis -On Eliquis Full Code as per discussion with pt Follows with Dr Browne for routine care Pt was seen and care coordinated with Dr Martínez. See addendum History of Present Illness Chief Complaint: Palpitations Primary Care Provider: Daily Browne, Pt is 48 y/o M with PMH paroxysmal atrial fibrillation on Eliquis, HTN, HLD, CAD s/p MANUEL to RCA & LAD in 2011, GERD, anxiety, prediabetes presented to ER with c/o palpitations described as "heart fluttering and flipping" during the middle of the night. He put on his home blood pressure cuff and it reported irregular rhythm. Denies CP, diaphoresis, dizziness with these symptoms. Pt reports has been having indigestion keeping him awake at night and was recently changed from ranitidine to Pepcid and omeprazole. He was hospitalized last week with right shoulder pain, CP and had normal exercise stress test at that time. He states had used Flexeril which helped relieve the symptoms. Pt reports took his PM medications last night. States in past he has self converted from a-fib to sinus rhythm and did not require cardioversion. Denies fever/chills, diaphoresis, N/V/D/C, MARTIN, dizziness, syncope, vision changes, neck pain, orthopnea, cough, sore throat, choking, otalgia, rhinorrhea, abdominal pain, paresthesias, weakness, extremity weakness, extremity edema, rashes, urinary symptoms. Allergies Allergy/AdvReac Type Severity Reaction Status Date / Time Sulfa (Sulfonamide Allergy Intermediate Rash Verified 03/27/19 05:22 Antibiotics) sertraline Allergy Unknown Confusion Verified 03/27/19 05:22 Home Medications Home Medications Medication Instructions Recorded Confirmed Type apixaban 5 mg tablet 5 mg PO BID #60 tab 10/14/18 03/27/19 Rx acetaminophen [Tylenol Extra 1,000 mg PO Q6H PRN 03/19/19 03/27/19 History Strength] atorvastatin 80 mg PO QPM 03/19/19 03/27/19 History clopidogrel 75 mg PO QAM 03/19/19 03/27/19 History famotidine 20 mg PO DAILY PRN 03/19/19 03/27/19 History lisinopril 5 mg PO QAM 03/19/19 03/27/19 History loratadine 10 mg PO QPM PRN 03/19/19 03/27/19 History metformin 500 mg PO BIDM 03/19/19 03/27/19 History nitroglycerin 0.4 mg SL DIRECTED PRN 03/19/19 03/27/19 History cyclobenzaprine 10 mg PO TID PRN #90 tab 03/20/19 03/27/19 Rx omeprazole 20 mg PO DAILY 03/27/19 03/27/19 History methimazole 15 mg PO BID 30 Days #90 tab 03/28/19 Rx metoprolol tartrate 50 mg PO BID 30 Days #60 tab 03/28/19 Rx Past Med/Surg History Medical History (Updated 03/28/19 @ 13:26 by Ema Martínez MD) CAD (coronary artery disease) GERD (gastroesophageal reflux disease) Hypertension PAF (paroxysmal atrial fibrillation) Pre-diabetes STEMI (ST elevation myocardial infarction) Surgical History History of cardiac catheterization Family History Other Hypertension Stroke Social History Preferred Language: Thai Communication Ability: Effective Landing Signal Officer Required: No Beliefs That Will Affect Care: None Current Living Situation: Spouse Feels Safe at Home: Yes Smoking Status: Never smoker Hx Alcohol Use: No Hx Substance Use: No Review of Systems Review of Systems: All systems reviewed & are unremarkable except as noted in HPI & below Physical Exam Physical Exam: General: no distress, WDWN Head: normocephalic, atraumatic Eyes: PERRL, EOM's intact, conjunctiva non-injected, anicteric ENT: normal inspection external ears, nose, mucous membranes moist Neck: supple, trachea midline Lungs: clear, no respiratory distress, no wheezing/rhonchi/rales CV: irregularly irregular, rate 114, no murmur, no pretibial edema Abd: normal BS, soft, non-tender Ext: no cyanosis, no calf tenderness Neuro: A&O x 3, no focal deficits noted, normal affect Skin: warm, dry Results & Data Vital Signs (Past 12 Hours) Vital Signs Temp Pulse Pulse Resp BP BP Pulse Ox 03/27/19 08:30 92 H 26 H 97 03/27/19 08:00 112 H 29 H 136/80 98 03/27/19 07:43 93 H 26 H 130/88 97 03/27/19 07:31 102 H 19 152/111 H 96 03/27/19 07:30 106 H 23 95 03/27/19 07:02 109 H 22 97 03/27/19 07:00 96 H 28 H 124/83 97 03/27/19 06:59 103 H 108 H 34 H 123/89 124/83 97 03/27/19 06:30 83 28 H 96 03/27/19 06:19 101 H 103 H 24 112/74 112/74 96 03/27/19 06:00 106 H 23 95 03/27/19 05:40 109 H 22 147/88 H 96 03/27/19 05:30 96 H 36 H 03/27/19 05:20 97 03/27/19 05:18 97 03/27/19 05:13 106 H 26 H 97 03/27/19 05:04 36.8 C 93 H 18 158/91 H 97 03/27/19 04:57 117 H 20 147/88 H 97 Laboratory Results Short CBC 03/27/19 Range/Units 05:26 WBC 9.19 (4.8-10.8) K/uL Hgb 16.3 (14.0-18.0) g/dL Hct 45.8 (42-52) % Plt Count 246 (130-400) K/uL BMP 03/27/19 05:26 Sodium 136 Potassium 4.1 Chloride 105 Carbon Dioxide 25 BUN 13 Creatinine 0.81 Glucose 201 H Calcium 8.8 Cardiac Enzymes 03/27/19 03/27/19 Range/Units 05:26 06:56 Troponin I < 0.015 < 0.015 (0-0.045) ng/ml Liver Function 03/27/19 Range/Units 05:26 Total Bilirubin 0.3 (0.2-1) mg/dl AST 27 (15-37) U/L ALT 63 (12-78) U/L Alkaline Phosphatase 127 H (45-117) U/L Albumin 3.5 (3.4-5.0) gm/dl Diagnostic Findings CXR: IMPRESSION: No acute process. ECG Rate (beats per minute): 116 Rhythm: atrial fibrillation Supervising Physician Co-Signing Physician Notes Pt was seen and examined. Agreed with [facility] exam, assessment and plan. 48 y/o M with PMH paroxysmal atrial fibrillation on Eliquis, HTN, HLD, CAD s/p MANUEL to RCA & LAD in 2011, GERD, anxiety, prediabetes presented to ER with palpitations that started in the middle of the night. Pt said that he has been complaint with his metoprolol and eliquis. Denies any chest pain, dizziness and fever. Lab showed TSH 0.005 and Free T4 1.63. Pt said that he has been feeling a fullness in his throat. Pt said that he the past he usually converted spon taneously to NSR. Cardiology consult and plan to titrate his metoprolol. Will check Total T3 and will get an U/S thyroid. Will continue monitor closely in tele. MD Tanya (1) CAD (coronary artery disease) Associated angina: without angina Coronary Disease-Associated Artery/Lesion type: [place] artery [place] vs. transplanted heart: [place] heart Qualified Code(s): I25.10 - Atherosclerotic heart disease of [place] coronary artery without angina pectoris (2) Hypertension Hypertension type: essential hypertension Qualified Code(s): I10 - Essential (primary) hypertension
[2019-03-27] MEDS ORDERED: GLUCOSE 10 TABS/TUBE PO PRN (10:02)
[2019-03-27] MEDS ORDERED: FAMOTIDINE 20 MG TAB PO PRN (10:02)
[2019-03-27] MEDS ORDERED: NITROGLYCERIN SL 0.4 MG/TAB TAB SL PRN (10:02)
[2019-03-27] MEDS ORDERED: GLUCOSE 40% GEL 15 GM TUBE PO PRN (10:02)
[2019-03-27] MEDS ORDERED: CARBOHYDRATES FOR HYPOGLYCEMIA PO PRN (10:02)
[2019-03-27] MEDS ORDERED: GLUCAGON FOR INJ 1 MG VIAL SQ PRN (10:02)
[2019-03-27] MEDS ORDERED: ACETAMINOPHEN 325 MG TAB PO PRN (10:02)
[2019-03-27] MEDS ORDERED: DEXTROSE 50% 50 ML SYRINGE IV PRN (10:02)
[2019-03-27] MEDS ORDERED: CYCLOBENZAPRINE HCL 10 MG TAB PO PRN (10:21)
[2019-03-27 10:42] LABS: Thyroid Stimulating Hormone < 0.005 uIu/ml (0.300-4.500)
[2019-03-27 10:55] LABS: T4 Free Thyroxine 1.63 ng/dl (0.8-1.6)
--- NOTE | 2019-03-27 11:09 | Cardiology Consultation ---
Date of Consultation March 27, 2019 Assessment & Plan (1) Atrial fibrillation with rapid ventricular response: He remains in atrial fibrillation with an elevated rate in the 120s currently. Will administer another dose of PO Lopressor 25 mg now and then order PO Lopressor 50 mg BID starting this evening. The dose could then be further titrated if needed for additional rate control. He should remain anticoagulated with Eliquis 5 mg BID. (2) CAD (coronary artery disease): He is currently chest pain free. His discomfort last evening appeared GI in nature as it occurred when lying down and resolved with sitting. Cardiac enzymes were negative. ECG showed no acute ischemic changes. Stress echo was performed last week and was negative for ischemia. Continue Plavix, high intensity statin, and beta tay therapy. (3) Hypertension: BP has been normotensive to mildly hypertensive. His Lopressor dose is being adjusted as noted above for better rate control of his arrhythmia, which will also help with BP control. Continue lisinopril as prescribed. (4) Hypercholesterolemia: Continue atorvastatin 80 mg daily. Patient discussed with Dr. Benton who was also in to see the patient today. Supervising Physician Co-Signing Physician Notes Patient seen and examined, consult reviewed with Tammie. Agree with above. He has not had atrial fibrillation of sufficient duration under direct care to titrate medications to the necessary degree of control. We will do so while he is here by gradually increasing his beta-tay today to try to achieve rate control. He may have had side effects on beta-blockers in the past but we are going to try them, if he develops side effects we can consider other agents or Bystolic. History of Present Illness Reason for Consultation: Atrial fibrillation with RVR History of Present Illness Mr. Smith is a 40-year-old male admitted this morning with atrial fibrillation with RVR. His cardiac history began in February 2011 when he suffered an inferior myocardial infarction requiring a MANUEL in the RCA. Several days later, he had a stage procedure and placement of a MANUEL in the LAD. He also carries a history of paroxysmal atrial fibrillation dating back to August 2016. He has been maintained on metoprolol tartrate 25 mg BID for rate control strategy as well as Eliquis 5 mg BID. The patient states that last evening, he did not sleep well due to reflux. He states that every time he would lie down, he would feel a burning discomfort in his upper chest region and into his throat. The discomfort would resolve with sitting upright. Around 4 or 5 am, he developed palpitations described as a fluttering in his chest. He noted that his heart was irregular on his blood pressure cuff. He felt decreased energy and some mild exertional shortness of breath with the palpitations. He had no chest discomfort with the palpitations, and he denies lightheadedness or presyncope. Due to concern regarding the palpitations, he presented to the emergency room for further evaluation. He was found to be in atrial fibrillation with RVR in the ER and has since been admitted. He was given a dose of IV diltiazem in the ER and has also received a dose of PO Lopressor 25 mg. He is currently resting comfortably in bed with no significant palpitations. He remains on his Eliquis, and he denies abnormal bleeding such as melena, hematochezia, or hematuria. He denies cerebrovascular symptoms. He denies edema. Of note, patient was admitted last week with chest pain. Approximately 4-6 weeks prior, he developed right shoulder discomfort which would occasionally radiate to his substernal region. The discomfort was positional in nature, but he would occasionally note it when walking his dog or climbing up several flights of stai rs. It was relieved with rest. He was quite concerned about his symptoms, and therefore, presented to the emergency room for further care. His troponin was mildly elevated with a peak of 0.048. ECG showed no acute ischemic changes. He underwent a stress echo during the hospitalization which was negative for myocardial ischemia at 10.1 METS and 87% MPHR. Resting echo demonstrated normal LV systolic function with no significant valvular abnormality. Past medical and surgical history 1. Coronary artery disease-see above 2. RCA MANUEL-02/2011 3. LAD MANUEL-02/2011 4. Hypertension 5. Hypercholesterolemia 6. Paroxysmal atrial fibrillation-08/2016 7. Hyperglycemia 8. GERD 9. Anxiety 10. Allergic rhinitis Social history and lives with his Works in maintenance at [employer] No tobacco Rare alcohol Family history Mother is 70 and healthy Father had an HI at 60 and a CVA at 62. He is now in his mid 70s. Allergies Allergy/AdvReac Type Severity Reaction Status Date / Time Sulfa (Sulfonamide Allergy Intermediate Rash Verified 03/27/19 05:22 Antibiotics) sertraline Allergy Unknown Confusion Verified 03/27/19 05:22 Home Medications Home Medications Medication Instructions Recorded Confirmed Type apixaban 5 mg tablet 5 mg PO BID #60 tab 10/14/18 03/27/19 Rx acetaminophen [Tylenol Extra 1,000 mg PO Q6H PRN 03/19/19 03/27/19 History Strength] atorvastatin 80 mg PO QPM 03/19/19 03/27/19 History clopidogrel 75 mg PO QAM 03/19/19 03/27/19 History famotidine 20 mg PO DAILY PRN 03/19/19 03/27/19 History lisinopril 5 mg PO QAM 03/19/19 03/27/19 History loratadine 10 mg PO QPM PRN 03/19/19 03/27/19 History metformin 500 mg PO BIDM 03/19/19 03/27/19 History metoprolol tartrate 25 mg PO BID 03/19/19 03/27/19 History nitroglycerin 0.4 mg SL DIRECTED PRN 03/19/19 03/27/19 History cyclobenzaprine 10 mg PO TID PRN #90 tab 03/20/19 03/27/19 Rx omeprazole 20 mg PO DAILY 03/27/19 03/27/19 History Patient History Medical History (Updated 03/27/19 @ 09:38 by Geeta Ellis PA-C) CAD (coronary artery disease) GERD (gastroesophageal reflux disease) Hypertension PAF (paroxysmal atrial fibrillation) Pre-diabetes STEMI (ST elevation myocardial infarction) Surgical History History of cardiac catheterization Family History Other Hypertension Stroke Social History Preferred Language: Romanian Communication Ability: Effective Chemistry Professor Required: No Beliefs That Will Affect Care: None Current Living Situation: Spouse Other Information That Helps Us Care for You: No Feels Safe at Home: Yes Safety Concerns: Feels Safe At This Time Smoking Status: Never smoker Hx Alcohol Use: No Hx Substance Use: No Physical Exam Physical Exam: Constitutional: Alert, oriented, in no acute distress HEENT: Head is atraumatic and normocephalic. EOMs intact. Sclera non-icteric. Face is symmetric. No perioral cyanosis. Mucous membranes moist Neck: Supple, no JVD Pulmonary: Normal respiratory effort, clear to auscultation throughout Cardiac: Tachycardic, irregular, normal S1 and S2, no gallops, no rubs, no murmurs Extremities: No edema. No clubbing or cyanosis. Pulses 2+ and symmetric Abdomen: Normal bowel sounds, soft, non-tender, no abdominal masses palpated Skin: Normal skin color, turgor, and pigmentation. No rash or skin lesions Neurological: Oriented to person, place, and time Results & Data ([facility]) Vital Signs (Past 12 Hours) Vital Signs Temp Pulse Pulse Resp BP BP Pulse Ox 03/27/19 10:15 98.1 F 112 H 18 136/94 03/27/19 09:30 100 H 27 H 126/77 98 03/27/19 09:00 101 H 25 H 147/84 H 97 03/27/19 08:30 92 H 26 H 97 03/27/19 08:00 112 H 29 H 136/80 98 03/27/19 07:43 93 H 26 H 130/88 97 03/27/19 07:31 102 H 19 152/111 H 96 03/27/19 07:30 106 H 23 95 03/27/19 07:02 109 H 22 97 03/27/19 07:00 96 H 28 H 124/83 97 03/27/19 06:59 103 H 108 H 34 H 123/89 124/83 97 03/27/19 06:30 83 28 H 96 03/27/19 06:19 101 H 103 H 24 112/74 112/74 96 03/27/19 06:00 106 H 23 95 03/27/19 05:40 109 H 22 147/88 H 96 03/27/19 05:30 96 H 36 H 03/27/19 05:20 97 03/27/19 05:18 97 03/27/19 05:13 106 H 26 H 97 03/27/19 05:04 98.2 F 93 H 18 158/91 H 97 03/27/19 04:57 117 H 20 147/88 H 97 Laboratory Results Laboratory Results WBC 9.19 K/uL (4.8-10.8) 03/27/19 05:26 RBC 5.65 M/uL (4.7-6.1) 03/27/19 05:26 Hgb 16.3 g/dL (14.0-18.0) 03/27/19 05:26 Hct 45.8 % (42-52) 03/27/19 05:26 MCV 81.1 fL (80-100) 03/27/19 05:26 MCH 28.8 pg (25-34) 03/27/19 05:26 MCHC 35.6 g/dL (32-36) 03/27/19 05:26 RDW Std Deviation 36.5 fL (36.4-46.3) 03/27/19 05:26 RDW Coeff of Bernice 12.4 % (11.5-14.5) 03/27/19 05:26 Plt Count 246 K/uL (130-400) 03/27/19 05:26 MPV 10.2 fL (7.4-10.4) 03/27/19 05:26 Immature Gran % (Auto) 0.2 % 03/27/19 05:26 Neut % (Auto) 54.3 % 03/27/19 05:26 Lymph % (Auto) 30.5 % 03/27/19 05:26 [place] % (Auto) 9.8 % 03/27/19 05:26 Eos % (Auto) 5.0 % 03/27/19 05:26 Baso % (Auto) 0.2 % 03/27/19 05:26 Immature Gran # (Auto) 0.02 K/uL (0.00-0.02) 03/27/19 05:26 Neut # (Auto) 4.99 K/uL (1.4-6.5) 03/27/19 05:26 Lymph # (Auto) 2.80 K/uL (1.2-3.4) 03/27/19 05:26 [place] # (Auto) 0.90 K/uL (0.11-0.59) H 03/27/19 05:26 Eos # (Auto) 0.46 K/uL (0-0.5) 03/27/19 05:26 Baso # (Auto) 0.02 K/uL (0-0.2) 03/27/19 05:26 PT 9.8 Seconds (9.0-12.0) 03/27/19 05:26 INR 1.0 (0.9-1.1) 03/27/19 05:26 APTT 28.5 Seconds (21.0-31.0) 03/27/19 05:26 PTT Ratio 1.1 03/27/19 05:26 Sodium 136 mmol/L (136-145) 03/27/19 05:26 Potassium 4.1 mmol/L (3.5-5.1) 03/27/19 05:26 Chloride 105 mmol/L (98-107) 03/27/19 05:26 Carbon Dioxide 25 mmol/L (21-32) 03/27/19 05:26 Anion Gap 6.0 (3-11) 03/27/19 05:26 BUN 13 mg/dl (7-18) 03/27/19 05:26 Creatinine 0.81 mg/dl (0.6-1.4) 03/27/19 05:26 Est Cr Clr Drug Dosing 140.0 ml/min 03/27/19 05:26 Est GFR ( Amer) 121.8 03/27/19 05:26 Est GFR (Non-Af Amer) 105.1 03/27/19 05:26 BUN/Creatinine Ratio 16.1 (10-20) 03/27/19 05:26 Glucose 201 mg/dl (70-99) H 03/27/19 05:26 Calcium 8.8 mg/dl (8.5-10.1) 03/27/19 05:26 Magnesium 2.0 mg/dl (1.8-2.4) 03/27/19 06:56 Total Bilirubin 0.3 mg/dl (0.2-1) 03/27/19 05:26 AST 27 U/L (15-37) 03/27/19 05:26 ALT 63 U/L (12-78) 03/27/19 05:26 Alkaline Phosphatase 127 U/L (45-117) H 03/27/19 05:26 Troponin I < 0.015 ng/ml (0-0.045) 03/27/19 06:56 Total Protein 7.5 gm/dl (6.4-8.2) 03/27/19 05:26 Albumin 3.5 gm/dl (3.4-5.0) 03/27/19 05:26 Globulin 4.0 gm/dl (2.5-4.0) 03/27/19 05:26 Albumin/Globulin Ratio 0.9 (0.9-2) 03/27/19 05:26 Lipase 161 U/L (73-393) 03/27/19 05:26 TSH < 0.005 uIu/ml (0.300-4.500) L 03/27/19 06:56 Free T4 1.63 ng/dl (0.8-1.6) H 03/27/19 06:56 Specimen Hemolysis 03/27/19 05:26 Diagnostic Findings ECG today shows atrial fibrillation with RVR. 107 bpm. Inferior infarct. Telemetry: Atrial fibrillation in the 120s. CXR: No acute process. PG Care Time/CCT Total # of Minutes Spent Total Time Spent with Patient: Total time spent is greater than 50% in coordination of care (as documented) at patient's floor/unit and/or counseling patient: Coding Level of Care Code 82491 Inpt Consult Level 4 Diagnoses Atrial fibrillation with rapid ventricular response I48.91 CAD (coronary artery disease) I25.10 Associated angina: without angina Coronary Disease-Associated Artery/Lesion type: [place] artery [place] vs. transplanted heart: [place] heart Hypertension I10 Hypertension type: essential hypertension Hypercholesterolemia E78.00 (1) CAD (coronary artery disease) Associated angina: without angina Coronary Disease-Associated Artery/Lesion type: [place] artery [place] vs. transplanted heart: [place] heart Qualified Code(s): I25.10 - Atherosclerotic heart disease of [place] coronary artery without angina pectoris (2) Hypertension Hypertension type: essential hypertension Qualified Code(s): I10 - Essential (primary) hypertension
[2019-03-27] MEDS: APIXABAN 5 MG TABLET PO SCH ×2 (11:15→20:32)
[2019-03-27] MEDS ORDERED: METOPROLOL TARTRATE 25 MG TAB PO ONE ×2 (11:15→14:45)
[2019-03-27] MEDS: CLOPIDOGREL BISULFATE 75 MG TAB PO SCH (11:16)
[2019-03-27] MEDS: lisinopriL 5 MG TAB PO SCH (11:16)
[2019-03-27] MEDS: INSULIN ASPART 100 UNITS/ML 3 ML PEN SC SCH ×3 (12:33→20:31)
[2019-03-27] MEDS ORDERED: METOPROLOL TARTRATE 25 MG TAB PO SCH ×2 (14:00→21:00)
[2019-03-27] MEDS: METOPROLOL TARTRATE 100 MG TAB PO SCH (20:34)
[2019-03-27] MEDS ORDERED: ATORVASTATIN 40 MG TAB PO SCH (21:00)
[2019-03-27] MEDS ORDERED: METOPROLOL TARTRATE 50 MG TAB PO SCH (21:00)
[2019-03-28 07:08] LABS: Hematocrit (blood only) 47.2 % (42-52); Hemoglobin 16.3 g/dL (14.0-18.0); Mean Corpuscular Hemoglobin 28.6 pg (25-34); Mean Corpuscular Hgb Conc 34.5 g/dL (32-36); Mean Platelet Volume 10.5 fL (7.4-10.4); Platelet Count 254 K/uL (130-400); RDW Coefficient of Variation 12.6 % (11.5-14.5); RDW Standard Deviation 37.8 fL (36.4-46.3); Red Blood Count 5.69 M/uL (4.7-6.1); White Blood Count 10.01 K/uL (4.8-10.8)
--- NOTE | 2019-03-28 07:39 | Electrocardiogram Report ---
Test Reason : Blood Pressure : / mmHG Vent. Rate : 107 BPM Atrial Rate : 122 BPM P-R Int : 000 ms QRS Dur : 088 ms QT Int : 280 ms P-R-T Axes : 000 035 -23 degrees QTc Int : 373 ms Atrial fibrillation with rapid ventricular response Inferior infarct (cited on or before 18-AUG-2016) Abnormal ECG When compared with ECG of 20-MAR-2019 07:09, Atrial fibrillation has replaced Sinus rhythm Confirmed by Morgan Benton ([id number]) on 03/28/2019 7:38:39 AM Referred By: REFERRED SELF Confirmed By:Morgan Benton
[2019-03-28 08:02] LABS: BUN Creatinine Ratio 15.1 (10-20); Calcium 9.2 mg/dl (8.5-10.1); Creatinine Clr Calc Pharmacy 123.3 ml/min; Est GFR (African American) 113.6
[2019-03-28] MEDS: INSULIN ASPART 100 UNITS/ML 3 ML PEN SC SCH ×2 (08:04→12:29)
[2019-03-28] MEDS: lisinopriL 5 MG TAB PO SCH (08:06)
[2019-03-28] MEDS: APIXABAN 5 MG TABLET PO SCH (08:06)
[2019-03-28] MEDS: CLOPIDOGREL BISULFATE 75 MG TAB PO SCH (08:06)
[2019-03-28] MEDS: METOPROLOL TARTRATE 100 MG TAB PO SCH (08:23)
[2019-03-28] MEDS ORDERED: PANTOprazole 40 MG TAB PO SCH (09:00)
--- NOTE | 2019-03-28 10:18 | Ultrasound Report ---
US thyroid CLINICAL HISTORY: abnormal thyroid test/fullness in the thyroid COMPARISON STUDY: No previous studies for comparison. FINDINGS: The right lobe the thyroid measures 57 x 14 x 16 mm. The left lobe the thyroid measures 54 x 17 x 14 mm. There is a 2 mm hypoechoic lower pole right lobe nodule. There is a 4 mm circumscribed hypoechoic left lobe nodule. IMPRESSION: 1. Tiny bilateral thyroid nodules. Current Recommendations indicate no necessity of follow-up. ACT 112: Negative or not required by law. Electronically signed by: Roderick Lara M.D. 03/28/2019 10:17 AM
[2019-03-28] MEDS ORDERED: methIMAzole 5 MG TABLET PO SCH (11:00)
--- NOTE | 2019-03-28 13:36 | Hospitalist Progress Note ---
Date of Service March 28, 2019 Assessment & Plan (1) Atrial fibrillation with rapid ventricular response: Present on admission with palpitation. He was found to be on Afib with RVR EKG showed Afib with RVR on admission metoprolol increased to 100mg BID Converted back to NSR last night Continue Eliquis BID Rate controlled Case discussed with cardiology and ok to discharge on metoprolol 50mg BID Ok from cardiology standpoint to discharge home (2) Hyperthyroidism: TSH 0.005, Free T4 1.63 and Total T3 1.9 Thyroid u/s showed tiny bilateral thyroid nodules. Current Recommendations indicate no necessity of follow-up. Case discussed with endocrinology Dr. Miller recommended to start on Methimazole 15 mg BID Follow [facility] with [facility] End[facility] in 1 month Check TSH in 1 month (3) CAD (coronary artery disease): S/P MANUEL RCA and LAD in 201103/20/2019: exercise stress normal. 03/20/2019 echo: EF: 55-60%, no wall motion abnormality Continue Plavis, metoprolol, atorvastatin (4) Hypertension: Continue lisinopril (5) Hypercholesterolemia: Continue atorvastatin (6) Pre-diabetes: A1c: 7.1 on 03/20/2019 Will resume metformin on discharge (7) GERD (gastroesophageal reflux disease): Continue PPI, H2 tay DVT Prophylaxis On Eliquis BID CODE Status Full Code Disposition Follow up with your PCP Dr. Browne on 04/02 @ 2:05 PM Follow up with [facility] cardiology group Follow up with endocrinology Dr. Miller 3-4 weeks Admission and Anticipated Discharge Date Admission Date: March 27, 2019 Subjective Pt was seen and examined Sitting in bed with no distress with at bedside Pt said that he feels fine He converted back to NSR last night round 10pm Denies any chest pain, palpitation and SOB Physical Exam Physical Exam: General- No acute distress Head- atraumatic Eyes- PERRL, EOMI, ENT- oropharynx clear Neck- supple, no JVD Lungs- clear to auscultation Heart- regular rhythm; no murmur Abdomen- normal bowel sounds, soft, nontender Extremities- no calf tenderness Neuro- alert, oriented x 3; PERRL, EOMI; no facial palsy; no dysarthria Skin- warm & dry Results & Data ([facility]) Vital Signs (Past 12 Hours) Vital Signs Temp Pulse Pulse Pulse Resp BP Pulse Ox 03/28/19 12:00 36.3 C L 75 18 127/87 95 03/28/19 08:00 36.4 C L 87 18 109/69 96 03/28/19 07:16 87 03/28/19 04:19 36.5 C 88 19 106/73 96 (1) CAD (coronary artery disease) Associated angina: without angina Coronary Disease-Associated Artery/Lesion type: [place] artery [place] vs. transplanted heart: [place] heart Qualified Code(s): I25.10 - Atherosclerotic heart disease of [place] coronary artery without angina pectoris (2) Hypertension Hypertension type: essential hypertension Qualified Code(s): I10 - Essential (primary) hypertension
--- NOTE | 2019-03-28 19:42 | Electrocardiogram Report ---
Test Reason : Blood Pressure : / mmHG Vent. Rate : 082 BPM Atrial Rate : 082 BPM P-R Int : 170 ms QRS Dur : 086 ms QT Int : 386 ms P-R-T Axes : 058 098 -15 degrees QTc Int : 450 ms Normal sinus rhythm Rightward axis Possible Inferior infarct (cited on or before 18-AUG-2016) Abnormal ECG When compared with ECG of 27-MAR-2019 05:04, Sinus rhythm has replaced Atrial fibrillation Questionable change in QRS axis QT has lengthened Confirmed by Emmanuel Perez ([id number]) on 03/28/2019 7:42:31 PM Referred By: REFERRED SELF Confirmed By:Emmanuel Perez
--- NOTE | 2019-03-29 16:57 | Discharge Summary ---
Date of Service March 28, 2019 Admission HPI Per Admitting Provider Pt is 48 y/o M with PMH paroxysmal atrial fibrillation on Eliquis, HTN, HLD, CAD s/p MANUEL to RCA & LAD in 2011, GERD, anxiety, prediabetes presented to ER with c/o palpitations described as "heart fluttering and flipping" during the middle of the night. He put on his home blood pressure cuff and it reported irregular rhythm. Denies CP, diaphoresis, dizziness with these symptoms. Pt reports has been having indigestion keeping him awake at night and was recently changed from ranitidine to Pepcid and omeprazole. He was hospitalized last week with right shoulder pain, CP and had normal exercise stress test at that time. He states had used Flexeril which helped relieve the symptoms. Pt reports took his PM medications last night. States in past he has self converted from a-fib to sinus rhythm and did not require cardioversion. Denies fever/chills, diaphoresis, N/V/D/C, MARTIN, dizziness, syncope, vision changes, neck pain, orthopnea, cough, sore throat, choking, otalgia, rhinorrhea, abdominal pain, paresthesias, weakness, extremity weakness, extremity edema, rashes, urinary symptoms. Admission Exam Per Admitting Provider General: no distress, WDWN Head: normocephalic, atraumatic Eyes: PERRL, EOM's intact, conjunctiva non-injected, anicteric ENT: normal inspection external ears, nose, mucous membranes moist Neck: supple, trachea midline Lungs: clear, no respiratory distress, no wheezing/rhonchi/rales CV: irregularly irregular, rate 114, no murmur, no pretibial edema Abd: normal BS, soft, non-tender Ext: no cyanosis, no calf tenderness Neuro: A&O x 3, no focal deficits noted, normal affect Skin: warm, dry Principal Diagnosis Atrial fibrillation with rapid ventricular response: Hyperthyroidism: CAD (coronary artery disease): Hypertension: Hypercholesterolemia: Pre-diabetes: GERD (gastroesophageal reflux disease): Discharge Exam General- No acute distress Head- atraumatic Eyes- PERRL, EOMI, ENT- oropharynx clear Neck- supple, no JVD Lungs- clear to auscultation Heart- regular rhythm; no murmur Abdomen- normal bowel sounds, soft, nontender Extremities- no calf tenderness Neuro- alert, oriented x 3; PERRL, EOMI; no facial palsy; no dysarthria Skin- warm & dry Discharge Data Allergies Allergy/AdvReac Type Severity Reaction Status Date / Time Sulfa (Sulfonamide Allergy Intermediate Rash Verified 03/27/19 05:22 Antibiotics) sertraline Allergy Unknown Confusion Verified 03/27/19 05:22 Consultations 03/27/19 08:35 ED Decision to Admit Stat 03/27/19 10:02 Consult Cardiology Routine Ordered Studies 03/28/19 08:03 US thyroid Routine XR chest 1V portable HISTORY: 48 years-old Male Chest Pain acute atypical chest pain COMPARISON: Chest radiograph 03/19/2019 TECHNIQUE: Portable AP view of the chest FINDINGS: Cardiomediastinal and hilar silhouettes are within normal limits. There is no pneumothorax, pleural effusion, focal airspace consolidation or overt pulmonary edema. Bones of the chest appear grossly intact. IMPRESSION: No acute process. ACT 112: Negative or not required by law. The above report was generated using voice recognition software. It may contain grammatical, syntax or spelling errors. Electronically signed by: Epifanio Linn M.D. 03/27/2019 6:42 AM Dictated: 03/27/19 0641 Transcribed: 03/27/19 0641 US thyroid CLINICAL HISTORY: abnormal thyroid test/fullness in the thyroid COMPARISON STUDY: No previous studies for comparison. FINDINGS: The right lobe the thyroid measures 57 x 14 x 16 mm. The left lobe the thyroid measures 54 x 17 x 14 mm. There is a 2 mm hypoechoic lower pole right lobe nodule. There is a 4 mm circumscribed hypoechoic left lobe nodule. IMPRESSION: 1. Tiny bilateral thyroid nodules. Current Recommendations indicate no necessity of follow-up. ACT 112: Negative or not required by law. Electronically signed by: Roderick Lara M.D. 03/28/2019 10:17 AM Dictated: 03/28/19 1014 Transcribed: 03/28/19 1014 Hospital Course (1) Atrial fibrillation with rapid ventricular response: Present on admission with palpitation. He was found to be on Afib with RVR EKG showed Afib with RVR on admission metoprolol increased to 100mg BID Converted back to NSR last night Continue Eliquis BID Rate controlled Case discussed with cardiology and ok to discharge on metoprolol 50mg BID Ok from cardiology standpoint to discharge home (2) Hyperthyroidism: TSH 0.005, Free T4 1.63 and Total T3 1.9 Thyroid u/s showed tiny bilateral thyroid nodules. Current Recommendations indicate no necessity of follow-up. Case discussed with endocrinology Dr. Miller recommended to start on Methimazole 15 mg BID Follow up with [facility] in 1 month Check TSH in 1 month (3) CAD (coronary artery disease): S/P MANUEL RCA and LAD in 201103/20/2019: exercise stress normal. 03/20/2019 echo: EF: 55-60%, no wall motion abnormality Continue Plavis, metoprolol, atorvastatin (4) Hypertension: Continue lisinopril (5) Hypercholesterolemia: Continue atorvastatin (6) Pre-diabetes: A1c: 7.1 on 03/20/2019 Will resume metformin on discharge (7) GERD (gastroesophageal reflux disease): Continue PPI, H2 tay DVT Prophylaxis On Eliquis BID CODE Status Full Code Disposition Follow up with your PCP Dr. Browne on 04/02 @ 2:05 PM Follow up with [facility] Follow up with endocrinology Dr. Miller 3-4 weeks Total Time Total Time Spent Total Time Spent (In Minutes): 35 minutes Total Time Includes: Examination of the Patient, Discharge Planning, Medication Reconciliation, Communication With Other Providers and Other Discharge Plan Discharge Items Patient Disposition: Home - Self-Care Reason For Visit: AFIB RVR Discharge Diagnosis: Atrial fibrillation with rapid ventricular response: Hyperthyroidism: CAD (coronary artery disease): Hypertension: Hypercholesterolemia: Pre-diabetes: GERD (gastroesophageal reflux disease): Condition on Discharge: Good Activity: Resume your previous activity Non-emergency contact: Primary Care Provider Call non-emergency contact if: you have any medication questions Follow-up/Referrals: Daily Browne DO [Primary Care Provider] - 04/02/19 2:05 pm Diet: Heart Healthy Addtl Attending Provider Instructions: Follow up with your Primary care provider Dr. Browne on 04/02 @ 2:05 PM Follow up with [facility] in 2 weeks ([place] call to schedule for the appointment) Follow up with endocrinology Dr. Miller 3-4 weeks (please call to schedule for the appointment Check TSH in 1 month to monitor your thyroid function check liver enzymes and CBC in 2 weeks while on Methimazole Methimazole Common side effects may include: nausea, vomiting, upset stomach; headache, dizziness, drowsiness; numbness or tingly feeling; rash, itching, skin discoloration; muscle or joint pain; hair loss; or decreased sense of taste. Pending Studies at Discharge: No Stand-Alone Forms: [facility] [employer], Smoking Cessation Medications and DC Order Prescriptions: New methimazole 10 mg tablet 15 mg PO BID 30 Days Qty: 90 RF: 0 metoprolol tartrate 50 mg tablet 50 mg PO BID 30 Days Qty: 60 RF: 0 Continued Eliquis 5 mg tablet 5 mg PO BID Qty: 60 RF: 2 acetaminophen [Tylenol Extra Strength] 500 mg Tablet 1,000 mg PO Q6H PRN (Reason: Pain) RF: 0 atorvastatin 80 mg tablet 80 mg PO QPM RF: 0 clopidogrel 75 mg tablet 75 mg PO QAM RF: 0 metformin 1,000 mg tablet 500 mg PO BIDM RF: 0 nitroglycerin 0.4 mg tablet, sublingual 0.4 mg SL DIRECTED PRN (Reason: Chest Pain) RF: 0 lisinopril 5 mg tablet 5 mg PO QAM RF: 0 loratadine 10 mg tablet 10 mg PO QPM PRN (Reason: Nasal Congestion) RF: 0 famotidine 20 mg Tablet 20 mg PO DAILY PRN (Reason: Heartburn) RF: 0 cyclobenzaprine 10 mg tablet 10 mg PO TID PRN (Reason: muscle spasm) Qty: 90 RF: 0 omeprazole 20 mg Capsule,Delayed Release(Dr/Ec) 20 mg PO DAILY RF: 0 Discontinued metoprolol tartrate 25 mg tablet 25 mg PO BID RF: 0 Discharge Orders: Discharge Order (Routine); Ordered 03/28/19 Ordered By: Ema Martínez Admission Data Admit Date/Time: 03/27/19 09:01 Attending Provider: Ema Martínez Admit Provider: Ema Martínez Primary Care Provider: Daily Browne Other Providers: Morgan Benton ; Ema Martínez Other Interventions: Discharge Summary Assessment (RN) Last Done: 03/28/19 15:51 DC Date/Time DO NOT enter until pt leaves facility: 03/28/19 16:14
== END 2019-03-28 16:14 | disposition home or self-care (01) | DRG 310 ==
LOC: ED 04:57 → 2N 09:01

== ENCOUNTER 2019-04-28 09:25 | Observation (INO) ==
[2019-04-28] MEDS ORDERED: HEPARIN (PORCINE) 1000 UNIT/ML 10 ML (CATH LAB USE ONLY) ONE ×2 (10:39→13:28)
[2019-04-28] MEDS ORDERED: MIDAZOLAM HCL 1 MG/ML 2ML VIAL ONE ×3 (10:39→13:28)
[2019-04-28] MEDS ORDERED: NiCARDipine HCL INJ 2.5 MG/ML 10 ML AMP ONE ×2 (10:39→13:28)
[2019-04-28] MEDS ORDERED: fentaNYL citrate 100 MCG/2 ML VIAL ONE ×3 (10:39→13:28)
[2019-04-28] MEDS ORDERED: NITROGLYCERIN/D5W 100MCG/ML 20ML SYR ONE ×2 (10:40→13:29)
[2019-04-28] MEDS ORDERED: ASPIRIN 325 MG ECTAB PO ONE (10:47)
--- NOTE | 2019-04-28 10:53 | History & Physical Bridge Note ---
Date of Service April 28, 2019 History & Physical Bridge Note I have examined the patient, reviewed the History & Physical and in the interval since the performance of the History & Physical I have noted the following changes of clinical significance: no changes noted
--- NOTE | 2019-04-28 10:54 | Pre Anesthesia Assessment ---
Date of Service April 28, 2019 Pre Sedation Assessment Vital Signs Temp Pulse Resp BP Pulse Ox 04/28/19 09:40 36.8 C 81 18 112/80 98 Cardiovascular RRR, no murmur, no edema Respiratory normal respiratory effort, lungs clear to auscultation Pre-Sedation Airway Assessment Smoking Status: Never smoker Short, Thick Neck: No Thyromental Distance: < 3.5 Finger Breadths Oral Cavity: + WNL Mallampati Class: III ASA: ASA3 NPO Status Date of Last Intake of Fluids: 04/27/19 Time of Last Intake of Fluids: 20:00 Date of Last Intake of Solid Food: 04/27/19 Time of Last Intake of Solid Foods: 20:00 Procedure Planning Contraindications for Sedation: none Current Medications Reviewed: Yes Notes The planned sedation has been discussed with the patient. Informed Consent was obtained. I have identified the patient, determined the appropriateness of sedation and have assessed the patient immediately prior to the procedure. All medicine(s) and interventions are by my order.
[2019-04-28] MEDS ORDERED: NITROGLYCERIN SL 0.4 MG/TAB TAB ONE (11:35)
--- NOTE | 2019-04-28 12:00 | Cardiac Catheterization ---
[facility] Data: Incident Engineer Cardiac Status Clinical evaluation leading to the procedure CAD Presenation: Unstable angina Anginal Classification: CCS IV Heart Failure: No Cardiogenic Shock within 24 Hours: No Cardiac Arrest within 24 Hours: No Imaging Studies Past 6 Months: No Stress Studies Past 6 Months: No Standard Exercise Test: No Stress Echocardiogram: No Stress Testing w/SPECT MPI: No Cardiac CTA: No Coronary Anatomy Dominant: Right Left Ventricular Angiography EF (%): n/a Diagnostic Physicians Name: Mustapha Llanos MD Status: Elective Closure Device Percutaneous Entry Location: Radial Closure Device: Radial Band Recommendations: PCI without planned CABG Cardiac Cath Procedure Full Procedure Date April 28, 2019 Pre-Procedure Diagnosis Pre-Procedure Diagnosis: Angina AUC Score AUC Score: 8 Post-Procedure Diagnosis Post-Procedure Diagnosis: Severe CAD and Normal Intracardiac Pressures Procedure(s) Performed Procedure(s) Performed: Coronary Angiography and Left Heart Cath Health Nurse Mustapha Llanos MD Supervisor Scouring Pads(s) T Smuck Estimated Blood Loss Estimated Blood Loss: < 25 ml Medication(s) Medication(s): Fentanyl, Heparin, Lidocaine 1%, Nicardipine, Nitroglycerin (SL for radial arterial spasm) and Versed Summary of Findings Procedures 1. Coronary angiography 2. Left heart catheterization 3. Moderate sedation Coronary geography: 1. Left main coronary artery: LMCA is without significant CAD. 2. Left anterior descending: LAD is a large-caliber vessel that extends to the apex. Mid LAD stent is patent. Large D1 and D2 without significant CAD. 3. Circumflex: The circumflex is a large-caliber vessel. Mid circumflex 40% stenosis. Distally, the circumflex continues within the AV groove as a small caliber vessel. Very small caliber OM1. Large caliber OM 2, OM 3. 4. Right coronary artery: The RCA is large and dominant. Late proximal RCA 99% subtotal occlusion followed with early mid RCA 100% stenosis. The PDA and PL fills via left to right collaterals. Left heart catheterization: 1. Left ventriculography was not performed. 2. No aortic stenosis. 3. Normal LVEDP; 6 mmHg. Moderate sedation: 1. Sedation start time: 11:23 AM 2. Sedation end time: 11:45 AM Procedural details: 1. Catheterization was performed via the right radial artery without known complications. 2. There was some spasm within the right radial artery with 6 Italian diagnostic catheter, which resolved after nitroglycerin and another dose of nicardipine. Impression: 1. Severe late proximal and early mid RCA CAD, with occluded mid RCA. 2. Left to right collaterals. 3. Anginal symptoms had included exertional symptoms but also symptomsin bed at rest. 4. Patent mid LAD stent. 5. Stable mid circumflex CAD. Plan: 1. Images were reviewed with Dr. Leiva of interventional cardiology, who plans to attempt PCI of RCA given his ongoing symptoms, including rest symptoms. Hemodynamics Rest Ao:: 108/63 Final Ao: 150/71 LV: 111/0/6 Recommendations Recommendations: PCI without planned CABG Specimens Specimens: None Radiation Exposure (mGy) 716 mGy. Fluoro time 2 min. Contrast (mls) 30 ml Disposition remains in labor relations officer for interventional cardiology I attest to the content of the Intraoperative Record and any orders documented therein. Any exceptions are noted below. [facility] Card Cath Procedure Codes Cardiac Catheterization Procedure 1: Cardiovascular Cath Procedures: 08133 Coronaries and LHC (+/-LV) Moderate Sedation Procedure 1: Sedation/Anesthesia: 00105 Mod Sedation by the same physician;Init15 Min Child Age 5 & Up Procedure 2: Sedation/Anesthesia: 97129 Mod Sedation by the same physician; Ea [id number] Minutes PG Care Time/CCT Total # of Minutes Spent Total Time Spent with Patient: Total time spent is greater than 50% in coordination of care (as documented) at patient's floor/unit and/or counseling patient:
[2019-04-28] MEDS ORDERED: CLOPIDOGREL BISULFATE 300 MG TAB ONE (13:01)
[2019-04-28] MEDS ORDERED: NITROGLYCERIN SL 0.4 MG/TAB TAB SL PRN (13:21)
[2019-04-28] MEDS ORDERED: ACETAMINOPHEN 325 MG TAB PO PRN (13:21)
[2019-04-28] MEDS ORDERED: ONDANSETRON INJ 2 MG/ML 2 ML VIAL IV PRN (13:21)
[2019-04-28] MEDS ORDERED: CYCLOBENZAPRINE HCL 10 MG TAB PO PRN (13:23)
[2019-04-28] MEDS ORDERED: ACETAMINOPHEN 500 MG TAB PO PRN (13:23)
[2019-04-28] MEDS ORDERED: LORATADINE 10 MG TAB PO PRN (13:23)
--- NOTE | 2019-04-28 13:26 | Post Anesthesia Assessment ---
Date of Service April 28, 2019 Post Sedation Assessment Vital Signs Temp Pulse Resp BP Pulse Ox 04/28/19 13:20 84 18 136/80 99 04/28/19 13:15 82 18 135/82 98 04/28/19 13:10 83 18 133/84 98 04/28/19 13:05 89 18 140/77 100 04/28/19 09:40 98.2 F 81 18 112/80 98 Recovery Score Activity: Moves 4 extremities Respiration: Deep Breath/Cough Circulation: +/-20% PreAnes Value Consciousness: Fully Awake Oxygen Saturation: > 92% On Room Air Post Anesthesia Score: 10 Discharge Sedation Level of Care: Fast Track Phase II Post Sedation Plan On clinical assessment, the patient appears to have tolerated the sedation without complications. Patient is recovering as anticipated. Patient will continue to be monitored by nursing and may be discharged when sedation discharge criteria are met per below protocol. Upon Completions of procedure up to 15 minutes continue every 5 minute vital signs and the P.A.R. score; then discharge to a Phase I or Fast Track to Phase II per the following guidelines: * Discharge Patient to appropriate Phase II area if PAR is 8 or greater or return to pre- procedure baseline. The post - procedure orders will be as directed. * If PAR score is less than 8 or not return to pre-procedure baseline then patient will follow Phase I monitoring till PAR is reached for Phase II. The Phase I may be done in procedure room or may call to secure a Phase I area. * If naloxone or flumazenil are used for reversal, hold in Phase I for continued monitoring from when last reversal dose was given for a minimum of 60 minutes or longer pending the nurse and/or physician discretion of patient condition before discharge to Phase II. Please call the Sedation Physician to re-evaluate and complete post-note for discharge to Phase II area. Do NOT discharge from procedure sedation or Phase 1 until post- sedation evaluation note is complete by procedure /sedation MD Sedation Discharge Instructions to be given to the patient at discharge to home.
[2019-04-28] MEDS ORDERED: SODIUM CHLORIDE 0.9% 1000ML 1,000 ML IV SCH (13:30)
--- NOTE | 2019-04-28 13:33 | Cardiac Catheterization ---
[facility] Data: Barber Cardiac Status Clinical evaluation leading to the procedure CAD Presenation: Unstable angina Anginal Classification: CCS IV Heart Failure: No Cardiogenic Shock within 24 Hours: No Cardiac Arrest within 24 Hours: No Imaging Studies Past 6 Months: No Stress Studies Past 6 Months: No Diagnostic Physicians Name: Deny Leiva MD Closure Device Percutaneous Entry Location: Radial Closure Device: Radial Band Recommendations: PCI without planned CABG PCI Indication: Unstable Angina Lesion Segment Name: mid RCA Culprit Artery: Yes Stenosis Prior to Rx (%): 100 Chronic Total Occlusion: Yes IVUS: No FFR: No Pre-Procedure KIT Flow: 0 Previously Treated Lesion: No Lesion Length (mm): 12 Thrombus Present: Yes Bifurcation Lesion: No Guidewire Across Lesion: Stenosis Post-Procedure (%): 0 Post-Procedure KIT Flow: 3 Devices(s) Deployed: Yes Yes Intraprocedure Events Significant Disection: No Perforation: No Cardiac Cath Procedure Full Procedure Date April 28, 2019 Pre-Procedure Diagnosis Pre-Procedure Diagnosis: Angina AUC Score AUC Score: 8 Post-Procedure Diagnosis Post-Procedure Diagnosis: Severe CAD and Successful PCI Procedure(s) Performed Procedure(s) Performed: Drug Eluting Stent Death Claim Clerk Deny Leiva MD Form Layer(s) Bautista Rivas Estimated Blood Loss Estimated Blood Loss: < 25 ml Medication(s) Medication(s): Clopidogrel, Fentanyl, Heparin, Lidocaine 1%, Nicardipine and Versed Summary of Findings Indication: Accelerating angina Access: 6 Fr right radial artery Catheters: AR-1 guide Findings: For full details of patient's coronary angiography please see cath report dictated by Dr. Llanos. Briefly, patient found to a subtotally occluded mid RCA with [id number] collaterals. Decision to proceed with PCI. -- PCI -- Antithrombotic therapy: Heparin, clopidogrel Procedure: RCA cannulated with AR-1 guide Whisper wire passed across lesion into distal vessel Mid RCA lesion predilated with 2.5 compliant balloon Dilated lesion stented with 3.5 x 15 mm Crispin drug-eluting stent Stent post-dilated with 3.75 noncompliant balloon IC vasodilators administered for spasm Noted to have a severe residual stenosis in distal RCA just prior to bifurcation with PDA. Distal RCA stented with 3.0 x 12 mm Crispin. Postdilated with 3.0 noncompliant balloon Post procedure KIT 3 flow, stents well expanded with minimal residual stenosis and no apparent cardiac complications. Arterial Closure: TR band Summary: 1. Successful PCI of mid RCA subtotal acute on chronic occlusion with drug- eluting stent (3.5 x 15 mm Cirspin; postdilated with 3.75 NC). 2. Successful PCI of distal RCA stenosis just prior to bifurcation with PDA with drug-eluting stent (3.0 x 12 m Crispin). Recommendations: To PCU for continued monitoring Loaded with clopidogrel 600 mg in cath Continue triple therapy with aspirin, clopidogrel, Eliquis while hospitalized. Discharged on dual therapy with clopidogrel, Eliquis for at least next year. Continue statin, and ASCVD risk factor modification Hemodynamics Rest Ao:: 101/65/84 Final Ao: 98/63/79 LV: -- Recommendations Recommendations: PCI without planned CABG Specimens Specimens: None Radiation Exposure (mGy) 3315 Contrast (mls) 140 Fluids (cc crystalloids) Fluids (cc crystalloids): 100 Drains Drains: none Anesthesia none Procedural Complication(s) None Disposition PCU I attest to the content of the Intraoperative Record and any orders documented therein. Any exceptions are noted below. [facility] Card Cath Procedure Codes Moderate Sedation Procedure 1: Sedation/Anesthesia: 08353 Mod Sedation by a different physician ;Init15 Min Child Age 5&Up Procedure 2: Sedation/Anesthesia: 67756 Mod Sedation by a different physician;Ea Additional 15 Minutes Stenting Procedure 1: Cardiovascular Stent Procedures: 41572 Perc transluminal revascularization of chronic total occlusion, PG Care Time/CCT Total # of Minutes Spent Total Time Spent with Patient: Total time spent is greater than 50% in coordination of care (as documented) at patient's floor/unit and/or counseling patient:
[2019-04-28] MEDS: METOPROLOL TARTRATE 100 MG TAB PO SCH (20:20)
[2019-04-28] MEDS ORDERED: ATORVASTATIN 40 MG TAB PO SCH (21:00)
--- NOTE | 2019-04-28 23:10 | Electrocardiogram Report ---
Test Reason : Blood Pressure : / mmHG Vent. Rate : 089 BPM Atrial Rate : 089 BPM P-R Int : 168 ms QRS Dur : 088 ms QT Int : 354 ms P-R-T Axes : 050 021 -02 degrees QTc Int : 430 ms Normal sinus rhythm Inferior infarct (cited on or before 18-AUG-2016) Anterior infarct (cited on or before 18-AUG-2016) Abnormal ECG When compared with ECG of 10-APR-2019 05:02, Sinus rhythm has replaced Atrial fibrillation Confirmed by Mustapha Llanos ([id number]) on 04/28/2019 11:10:27 PM Referred By: Tammie Glass Confirmed By:Mustapha Llanos
[2019-04-29 06:02] LABS: Basophils # (auto) 0.02 K/uL (0-0.2); Basophils % (auto) 0.2 %; Eosinophils # (auto) 0.44 K/uL (0-0.5); Eosinophils % (auto) 4.6 %; Hematocrit (blood only) 45.4 % (42-52); Hemoglobin 15.7 g/dL (14.0-18.0); Immature Granulocytes # (auto) 0.02 K/uL (0.00-0.02); Immature Granulocytes % (auto) 0.2 %; Lymphocytes # (auto) 2.62 K/uL (1.2-3.4); Lymphocytes % (auto) 27.6 %; Mean Corpuscular Hemoglobin 29.1 pg (25-34); Mean Corpuscular Hgb Conc 34.6 g/dL (32-36); Mean Corpuscular Volume 84.1 fL (80-100); Mean Platelet Volume 10.7 fL (7.4-10.4); Monocytes # (auto) 0.86 K/uL (0.11-0.59); Monocytes % (auto) 9.1 %; Neutrophils # (auto) 5.53 K/uL (1.4-6.5); Neutrophils % (auto) 58.3 %; Platelet Count 232 K/uL (130-400); RDW Coefficient of Variation 13.2 % (11.5-14.5); RDW Standard Deviation 39.5 fL (36.4-46.3); White Blood Count 9.49 K/uL (4.8-10.8)
[2019-04-29 06:31] LABS: BUN Creatinine Ratio 14.2 (10-20); Calcium 8.5 mg/dl (8.5-10.1); Creatinine Clr Calc Pharmacy 146.9 ml/min; Est GFR (African American) 122.8; Potassium 3.7 mmol/L (3.5-5.1)
[2019-04-29] MEDS: METOPROLOL TARTRATE 100 MG TAB PO SCH (08:36)
[2019-04-29] MEDS ORDERED: CLOPIDOGREL BISULFATE 75 MG TAB PO SCH (09:00)
[2019-04-29] MEDS ORDERED: APIXABAN 5 MG TABLET PO SCH (09:00)
[2019-04-29] MEDS ORDERED: lisinopriL 5 MG TAB PO SCH (09:00)
[2019-04-29] MEDS ORDERED: ASPIRIN 81 MG ECTAB PO SCH (09:00)
[2019-04-29] MEDS ORDERED: PANTOprazole 40 MG TAB PO SCH ×2 (09:00)
[2019-04-29] MEDS ORDERED: MULTIVITAMIN TAB PO SCH (09:00)
[2019-04-29] MEDS ORDERED: NON-FORMULARY MEDICATION (Coenzyme Q10 400 MG) PO SCH (09:00)
--- NOTE | 2019-04-29 09:25 | Discharge Summary ---
Date of Service April 29, 2019 Admission HPI Per Admitting Provider Mr. Smith is a pleasant 49-year-old gentleman with a history significant for CAD status post RCA and LAD PCI in 2016, hypertension, and dyslipidemia who presented to cardiac catheterization lab for elective outpatient coronary angiography due to anginal symptoms. He is followed by Dr. Maier as an outpatient and had been describing exertional angina and even some angina while at rest in bed overnight. Symptoms improved with titration of beta-tay but continued to have symptoms, which prompted coronary angiography. During coronary angiography, it was noted that he had RCA occlusion prior to mid RCA stent. His LAD stent was patent. There were [id number] collaterals but given rest symptoms, Dr. Leiva of interventional Cardiology performed PCI of his mid RCA with 3.5 x 15 mm arnulfo MANUEL. It was post dilated with a 3.75 mm noncompliant balloon. It was then noted that there was a distal RCA stenosis as well prior to the bifurcation of PDA. This underwent PCI with 3 x 12 mm arnulfo MANUEL. He was then admitted for observation. Principal Diagnosis Severe RCA CAD with angina s/p RCA PCI x 2. Discharge Exam Gen.: No acute distress. Alert and oriented. HEENT: Anicteric sclera. Neck: No JVD. Cardiac: Regular. Normal S1-S2. No murmurs, rubs, or gallops. Pulmonary: Clear to auscultation bilaterally without wheezes, rales, or rhonchi. Abdomen: Soft, nontender, nondistended, with normoactive bowel sounds. No bruits noted. Extremities: Right radial cath site is clean, dry, and intact without erythema or discharge. 2+ right radial pulse. No edema or cyanosis. Psychiatric: Affect appears appropriate. Discharge Data Allergies Allergy/AdvReac Type Severity Reaction Status Date / Time Sulfa (Sulfonamide Allergy Intermediate Rash Verified 04/22/19 08:25 Antibiotics) sertraline Allergy Unknown Confusion Verified 04/22/19 08:25 naproxen Allergy Unknown Verified 04/22/19 08:25 Procedures Performed Operation Date: 04/28/19 11:00 Actual Procedures p Cardiac Cath Procedure - Mustapha Llanos MD s Drug Eluting Stent SGl Vessel - Ramakrishna Leiva MD s Cineradiography w/Routine Exam - Ramakrishna Leiva MD s Cath, Left with Cors and Vent - Mustapha Farmerymanski, MD Cardiac Cath 04/28/2019: 1. Left main coronary artery: LMCA is without significant CAD. 2. Left anterior descending: LAD is a large-caliber vessel that extends to the apex. Mid LAD stent is patent. Large D1 and D2 without significant CAD. 3. Circumflex: The circumflex is a large-caliber vessel. Mid circumflex 40% stenosis. Distally, the circumflex continues within the AV groove as a small caliber vessel. Very small caliber OM1. Large caliber OM 2, OM 3. 4. Right coronary artery: The RCA is large and dominant. Late proximal RCA 99% subtotal occlusion followed with early mid RCA 100% stenosis. The PDA and PL fills via left to right collaterals. Left heart catheterization: 1. Left ventriculography was not performed. 2. No aortic stenosis. 3. Normal LVEDP; 6 mmHg. RCA PCI 04/28/2019: 1. Successful PCI of mid RCA subtotal acute on chronic occlusion with drug- eluting stent (3.5 x 15 mm [place]; postdilated with 3.75 mm NC). 2. Successful PCI of distal RCA stenosis just prior to bifurcation with PDA with drug-eluting stent (3.0 x 12 mm [place]). Telemetry reviewed: Sinus rhythm. No arrhythmia. Ordered Studies 04/28/19 10:45 CL Cath Imgs for PACS use only Routine Hospital Course (1) CAD (coronary artery disease): (2) Angina pectoris: (3) S/P coronary artery stent placement: (4) Hypertension: (5) PAF (paroxysmal atrial fibrillation): (6) Dyslipidemia: While on observation, he did not have any recurrent angina. He denies chest pain, shortness of breath, syncope, near-syncope, palpitations, edema, or bleeding. There were no known complications from his right radial cath site. He was able to ambulate in the hallways without angina or exertional symptoms. He was tolerating medications well. There were no arrhythmias noted on telemetry. Vital signs remained hemodynamically stable with reasonable blood pressure control. He was deemed ready for discharge following ambulation in the [place]. ASSESSMENT/PLAN: 1. CAD s/p PCI: Given presenting symptoms of exertional angina and also angina at rest, he underwent cardiac catheterization and PCI of RCA occlusion. He tolerated the procedure well. He will be discharged on Plavix 75 mg daily and also Eliquis which is being used for stroke risk reduction with atrial fibrillation as outlined by interventional Cardiology. Continue beta-tay, high-intensity statin therapy. 911 for angina that does not resolve within 5 minutes. 2. Angina: No further angina following PCI. 3. Hypertension: Blood pressure well controlled. Continue current regimen. 4. Paroxysmal atrial fibrillation: Continue beta-tay. Continue anticoagulation for stroke risk reduction in the form of Eliquis, which he was tolerating as an outpatient. 5. Disposition: He is okay to be discharged home. Dr. Maier, his primary shoe repairer apprentice, spoke with him in the hallway and has advised him to call the office in 1 week to discuss progress/plan of care. Total Time Total Time Spent Total Time Spent (In Minutes): 30 Total Time Includes: Examination of the Patient, Discharge Planning, Medication Reconciliation and Communication With Other Providers (discussed with Dr. Maier) Discharge Plan Discharge Items Patient Disposition: Home - Self-Care Reason For Visit: CARDIAC CATH Discharge Diagnosis: Severe Right coronary artery stenosis with placement of 2 new stents. Activity: Per Instructions section Non-emergency contact: Manager News Call non-emergency contact if: you have any medication questions, your pain is concerning for you, you have a fever, your wound has increased redness and your wound has increased drainage Follow-up/Referrals: Daily Browne DO [Primary Care Provider] - Diet: Carb Consistent or DM2 and Heart Healthy Addtl Attending Provider Instructions: ACTIVITY RECOMMENDATIONS: Excess manipulation of the wrist should be avoided for the next 24-48 hours. * No lifting over 2 pounds (approximately a 1/2 gallon of milk) with the utilized arm for 24 hours. * No strenuous activity such as bowling or tennis for 3 days. * Keep the site of the procedure covered with a bandage for 24 hours. *You may shower the day after the procedure. Do not take a tub bath or submerge the puncture site in water for the next 3 days. *Do not operate any motorized equipment for 3 days. SPECIAL CARE INSTRUCTIONS: The site may be slightly bruised and sore following your procedure. Should any of the following occur, contact the DrCharu who performed your procedure. 1. Redness/inflammation, swelling, chills, or fever, or colored drainage at procedure site within 3-7 days after your procedure. 2. Coldness, discoloration, ongoing numbness, severe pain, or swelling. Expect mild tingling of hand and tenderness at the puncture site for up to three days. If this persists beyond three days, or other symptoms develop, notify the Dr. who performed your procedure. BLEEDING: If the procedure site on your wrist begins to bleed, do not panic 1. Place 1 or 2 fingers firmly just slightly above the insertion site to stop the bleeding. You may be able to feel your pulse as you hold pressure. 2. Lift your finger after 5 minutes to see if the bleeding has stopped. 3. Once the bleeding has stopped, gently wipe the wrist area clean with a bandage. * If the bleeding from your wrist does not stop after 10 minutes, or if there is a large amount of bleeding or spurting, call 911 ([address] drive yourself to the hospital). SKIN IRRITATION: * You may experience some redness and/or swelling in the area where radiation was administered. If any skin irritation occurs, please contact your family physician. FOLLOW UP VISIT: 1. Dr. Maier has requested that you call him in 1 week to discuss how you are doing and arrange follow up appointment as appropriate. His number is [phone]. 2. You may return to work next week on Saturday, but avoid heavy lifting until you speak with Dr. Maier. Pending Studies at Discharge: No Stand-Alone Forms: [facility], Smoking Cessation Medications and DC Order Prescriptions: Continued Eliquis 5 mg tablet 5 mg PO BID Qty: 60 RF: 2 cyclobenzaprine 10 mg tablet 10 mg PO TID PRN (Reason: muscle spasm) RF: 0 coenzyme Q10 400 mg capsule 400 mg PO DAILY RF: 0 multivitamin Tablet 1 tab PO DAILY RF: 0 metoprolol tartrate 25 mg tablet 100 mg PO BID RF: 0 acetaminophen [Tylenol Extra Strength] 500 mg Tablet 1,000 mg PO Q6H PRN (Reason: Pain) RF: 0 atorvastatin 80 mg tablet 80 mg PO QPM RF: 0 clopidogrel 75 mg tablet 75 mg PO QAM RF: 0 nitroglycerin 0.4 mg tablet, sublingual 0.4 mg SL DIRECTED PRN (Reason: Chest Pain) RF: 0 lisinopril 5 mg tablet 5 mg PO QAM RF: 0 loratadine 10 mg tablet 10 mg PO QPM PRN (Reason: Nasal Congestion) RF: 0 metformin 1,000 mg tablet 1,000 mg PO BID RF: 0 pantoprazole 20 mg tablet,delayed release (DR/EC) 20 mg PO DAILY RF: 0 Discharge Orders: Discharge Order (Routine); Ordered 04/29/19 Ordered By: Mustapha Llanos Admission Data Admit Date/Time: 04/28/19 12:30 Attending Provider: Mustapha Llanos Admit Provider: Mustapha Llanos Primary Care Provider: Daily Browne Coding Level of Care Code 06626 OBS Care - Discharge Diagnoses CAD (coronary artery disease) I25.10 Coronary Disease-Associated Artery/Lesion type: [place] artery [place] vs. transplanted heart: [place] heart Associated angina: without angina Angina pectoris I20.9 S/P coronary artery stent placement Z95.5 Hypertension I10 Hypertension type: essential hypertension PAF (paroxysmal atrial fibrillation) I48.0 Dyslipidemia E78.5
== END 2019-04-29 10:45 | disposition home or self-care (01) ==
LOC: 2S 09:25 → CC 09:25